=== PATIENT | female | born 1945 | race Caucasian/White ===

== ENCOUNTER 2017-08-26 17:46 | Inpatient (IN) | payer MEDICARE, MEDICAID ==
[2017-08-26 18:51] VITALS: BMI 26.4
[2017-08-27] MEDS: Insulin Lispro (humaLOG) 100 Units/ml Inj SC SCH ×8 (08:32→22:29)
[2017-08-27] MEDS: Insulin Detemir 100 Units/ml Inj SC SCH ×2 (08:44→21:44)
[2017-08-27] MEDS ORDERED: Insulin Detemir 100 Units/ml Inj SC SCH (09:00)
--- NOTE | 2017-08-27 17:57 | PCM.OPOC ---
Physiatry Overall Plan of Care - Overall Plan of Care Estimated Length of Stay in Weeks: 3 Rehab Impairment: Mobility, Gait, Cognition, Speech, Balance, Coordination Etiologic Diagnosis: Cerebrovascular Accident Rehab/Medical Prognosis: Guarded - Anticipated Interventions Physical Therapy:: Yes Occupational Therapy:: Yes Speech Therapy:: Yes Recreational Therapy:: Yes - Therapy Goals Bed Mobility: Minimal Assistance Ambulation: Minimal Assistance Functional Positional Changes:: Minimal Assistance - Discharge Plan Discharge Destination: Subacute
--- NOTE | 2017-08-27 17:59 | CP.PCM.CON ---
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 This is dense and she has very limited gait and ADLs Prior level of function was independent without AD. She is right hand dominant and has good family support. Review of Systems - Constitutional Constitutional: absent: Anorexia, Chills - EENT Eyes: absent: Blind Spots Ears: absent: Ear Discharge, Disequilibrium Nose/Mouth/Throat: absent: Nasal Congestion - Cardiovascular Cardiovascular: absent: Chest Pain - Respiratory Respiratory: absent: Dyspnea - Gastrointestinal Gastrointestinal: absent: Belching, Coffee Ground Emesis, Constipation - Genitourinary Genitourinary: absent: Hematuria - Musculoskeletal Musculoskeletal: absent: Arthralgias - Integumentary Integumentary: absent: Wounds - Neurological Neurological: Focal Weakness (right HP dense), Weakness. absent: Abnormal Movements - Psychiatric Psychiatric: Depression. absent: Anxiety Past Patient History - Past Medical History & Family History Past Medical History?: Yes - Past Social History Smoking Status: Never Smoked Alcohol: None Drugs: Denies Home Situation {Lives}: With Family - CARDIAC Hx Hypertension: Yes - PULMONARY Hx Respiratory Disorders: No - NEUROLOGICAL HX Cerebrovascular Accident: Yes - HEENT Hx HEENT Problems: Yes Other/Comment: uses eyeglasses for reading - RENAL Other/Comment: one kidney removed per daughters - ENDOCRINE/METABOLIC Hx Diabetes Mellitus Type 2: Yes - HEMATOLOGICAL/ONCOLOGICAL Hx Blood Disorders: No Hx AIDS: No Hx Human Immunodeficiency Virus (HIV): No - INTEGUMENTARY Hx Dermatological Problems: No - MUSCULOSKELETAL/RHEUMATOLOGICAL Hx Musculoskeletal Disorders: No Hx Falls: No - GASTROINTESTINAL Other/Comment: on evaluation sheet with hx of gangrenous cholecystitis,S/P lap cholecystectomy but daughters denies - GENITOURINARY/GYNECOLOGICAL Hx Genitourinary Disorders: No - PSYCHIATRIC Hx Psychophysiologic Disorder: No Hx Substance Use: No - SURGICAL HISTORY Hx Surgeries: Yes Other/Comment: one kidney removed per daughters - ANESTHESIA Hx Anesthesia: Yes Hx Anesthesia Reactions: No Hx Malignant Hyperthermia: No Meds Allergies/Adverse Reactions: Allergies Allergy/AdvReac Type Severity Reaction Status Date / Time No Known Allergies Allergy Verified 08/27/17 06:07 - Medications Medications: Current Medications Amlodipine Besylate (Norvasc) 5 mg PO DAILY [facility] Last Admin: 08/27/17 08:28 Dose: 5 mg Aspirin (Aspirin Chewable) 81 mg PO DAILY [facility] Last Admin: 08/27/17 08:29 Dose: 81 mg Atorvastatin Calcium (Lipitor) 80 mg PO HS [facility] Clopidogrel Bisulfate (Plavix) 75 mg PO DAILY [facility] Last Admin: 08/27/17 08:28 Dose: 75 mg Heparin Sodium (Porcine) (Heparin) 5,000 units SC Q8H [facility] PRN Reason: Protocol Last Admin: 08/27/17 17:07 Dose: 5,000 units Insulin Detemir (Levemir) 10 units SC Q12 [facility] Last Admin: 08/27/17 08:44 Dose: 10 units Insulin Human Lispro (Humalog) 5 units SC ACHS [facility] Last Admin: 08/27/17 17:00 Dose: 5 units Insulin Human Lispro (Humalog) 0 units SC ACCU-CHECK [facility] PRN Reason: Protocol Last Admin: 08/27/17 17:01 Dose: 6 units Lidocaine HCl (Lidocaine 2% Viscous) 30 ml PO Q6 PRN PRN Reason: MOUTH PAIN Losartan Potassium (Cozaar) 50 mg PO DAILY [facility] Last Admin: 08/27/17 08:29 Dose: 50 mg Physical Exam - Constitutional Appears: Non-toxic - Head Exam Head Exam: ATRAUMATIC - Eye Exam Eye Exam: EOMI - ENT Exam ENT Exam: Mucous Membranes Moist - Respiratory Exam Respiratory Exam: NORMAL BREATHING PATTERN - Cardiovascular Exam Cardiovascular Exam: REGULAR RHYTHM - GI/Abdominal Exam GI & Abdominal Exam: absent: Distended, Guarding - Extremities Exam Extremities exam: Negative for: calf tenderness - Neurological Exam Neurological exam: Alert - Psychiatric Exam Psychiatric exam: Normal Affect, Normal Mood - Skin Skin Exam: Warm Results - Vital Signs Recent Vital Signs: Last Vital Signs Temp 97.5 F L 08/27/17 08:38 Pulse 91 H 08/27/17 15:51 Resp 18 08/27/17 08:38 BP 150/93 H 08/27/17 08:38 Pulse Ox 96 08/27/17 15:51 - Labs Labs: Laboratory Results - last 24 hr 08/27/17 08/27/17 08/27/17 05:14 11:12 15:55 POC Glucose (mg/dL) 272 H 291 H 307 H Assessment & Plan - Assessment and Plan (Free Text) Assessment: 72 year old right hand dominant female with dense right HP 0/5 Right UE/LE strength normal left UE/LE examination PT/OT to continue to help increase functional independence Team conference for d/c planning Pain: controlled Vascular: no evidence of DVT GI: No evidence of constipation or diarrhea Patient is an excellent acute rehabilitation candidate and will have continued focused speech, PT, OT and recreational therapy to help facilitate a safe and appropriate d/c plan impairment code 01.2 T
[2017-08-27] MEDS ORDERED: Patient's Own Med (Atorvastatin [Lipitor] 80 MG) PO SCH (22:00)
[2017-08-28] MEDS: Insulin Detemir 100 Units/ml Inj SC SCH ×2 (08:00→22:13)
[2017-08-28] MEDS: Insulin Lispro (humaLOG) 100 Units/ml Inj SC SCH ×7 (08:09→22:21)
--- NOTE | 2017-08-28 16:52 | CP.PCM.CON ---
History of Present Illness - History of Present Illness History of Present Illness: I was asked to evaluate patient. Patient is a 72 year old female with PMH HTN, hypercholesterolemia, PFO, CVA who presents for rehab. She was seen in [facility] for CVA. The patient had a previous CVA. [place] was performed revealing PFO. There was atheroma in the aorta. Review of Systems - Constitutional Constitutional: absent: As Per HPI, Anorexia, Chills, Daytime Sleepiness, Excessive Sweating, Fatigue, Fever, Frequent Falls, Headache, Increased Appetite , Lethargy, Malaise, Night Sweats, Snoring, Sleep Apnea, Weight Gain, Weight Loss, Weakness, Other - EENT Eyes: absent: As Per HPI, Blind Spots, Blurred Vision, Change in Vision, Decreased Night Vision, Diplopia, Discharge, Dry Eye, Exophthalmos, Floaters, Irritation, Itchy Eyes, Loss of Peripheral Vision, Pain, Photophobia, Requires Corrective Lenses, Sees Flashes, Spots in Vision, Tunnel Vision, Other Visual Disturbances, Loss of Vision, Other Ears: absent: As Per HPI, Decreased Hearing, Ear Discharge, Ear Pain, Tinnitus, Abnormal Hearing, Disequilibrium, Dizziness, Other Nose/Mouth/Throat: absent: As Per HPI, Epistaxis, Nasal Congestion, Nasal Discharge, Nasal Obstruction, Nasal Trauma, Nose Pain, Post Nasal Drip, Sinus Pain, Sinus Pressure, Bleeding Gums, Change in Voice, Dental Pain, Dry Mouth, Dysphagia, Halitosis, Hoarsness, Lip Swelling, Mouth Lesions, Mouth Pain, Odynophagia, Sore Throat, Throat Swelling, Tongue Swelling, Facial Pain, Neck Pain, Neck Mass, Other - Cardiovascular Cardiovascular: absent: As Per HPI, Acrocyanosis, Chest Pain, Chest Pain at Rest , Chest Pain with Activity, Claudication, Diaphoresis, Dyspnea, Dyspnea on Exertion, Edema, Irregular Heart Rhythm, Pain Radiating to Arm/Neck/Jaw, Leg Edema, Leg Ulcers, Lightheadedness, Orthopnea, Palpitations, Paroxysmal Nocturnal Dyspnea, Pedal Edema, Radiating Pain, Rapid Heart Rate, Slow Heart Rate, Syncope, Other - Respiratory Respiratory: absent: As Per HPI, Cough, Dyspnea, Hemoptysis, Dyspnea on Exertion , Wheezing, Snoring, Stridor, Pain on Inspiration, Chest Congestion, Excessive Mucous Production, Change in Mucous Color, Pain with Coughing, Other - Gastrointestinal Gastrointestinal: absent: As Per HPI, Abdominal Pain, Belching, Bloating, Change in Bowel Habits, Change in Stool Character, Coffee Ground Emesis, Constipation, Cramping, Diarrhea, Dyspepsia, Dysphagia, Early Satiety, Excessive Flatus, Fecal Incontinence, Heartburn, Hematemesis, Hematochezia, Loose Stools, Melena, Nausea, Odynophagia, Temesmus, Vomiting, Other - Genitourinary Genitourinary: absent: As Per HPI, Change in Urinary Stream, Difficulty Urinating, Dysuria, Flank Pain, Hematuria, Pyuria, Nocturia, Urinary Incontinence, Urinary Frequency, Urinary Hesitance, Urinary Urgency, Voiding Freq/Small Amts, Freq UTI, Hx Renal/Bladder Calculi, Hx /Renal Surgery, Bladder Distension, Other - Musculoskeletal Musculoskeletal: absent: As Per HPI, Abnormal Gait, Arthralgias, Atrophy, Back Pain, Deformity, Joint Swelling, Limited Range of Motion, Loss of Height, Muscle Cramps, Muscle Weakness, Myalgias, Neck Pain, Numbness, Radiating Pain into Limb, Stiffness, Tingling, Other - Integumentary Integumentary: absent: As Per HPI, Acne, Alopecia, Bleeding Lesions, Change in Hair, Change in Nails, Change in Pigmentation, Changing Lesions, Dry Skin, Erythema, Furuncle, Hirsutism, Lesions, New Lesions, Non-Healing Lesions, Photosensitivity, Pruritus, Rash, Skin Pain, Skin Ulcer, Sores, Striae, Swelling , Unusual Bruising, Wounds, Jaundice, Other - Neurological Neurological: Focal Weakness - Psychiatric Psychiatric: absent: As Per HPI, Abnormal Sleep Pattern, Anhedonia, Anxiety, Auditory Hallucinations, Behavioral Changes, Change in Appetite, Change in Libido, Confusion, Depression, Difficulty Concentrating, Hallucinations, Homicidal Ideation, Hopelessness, Irritability, Memory Loss, Mood Swings, Panic Attacks, Paranoia, Suicidal Ideation, Visual Hallucinations, Tactile Hallucinations, Other - Endocrine Endocrine: absent: As Per HPI, Change in Body Appearance, Change in Libido, Cold Intolorance, Deepening of Voice, Excessive Sweating, Fatigue, Flushing, Heat Intolorance, Increase in Ring/Shoe/Hat Size, Palpitations, Polydipsia, Polyphagia, Polyuria, Other - Hematologic/Lymphatic Hematologic: absent: As Per HPI, Easy Bleeding, Easy Bruising, Lymphadenopathy, Other Past Patient History - Past Medical History & Family History Past Medical History?: Yes - Past Social History Smoking Status: Never Smoked Alcohol: None Drugs: Denies Home Situation {Lives}: With Family - CARDIAC Hx Hypertension: Yes - PULMONARY Hx Respiratory Disorders: No - NEUROLOGICAL HX Cerebrovascular Accident: Yes - HEENT Hx HEENT Problems: Yes Other/Comment: uses eyeglasses for reading - RENAL Other/Comment: one kidney removed per daughters - ENDOCRINE/METABOLIC Hx Diabetes Mellitus Type 2: Yes - HEMATOLOGICAL/ONCOLOGICAL Hx Blood Disorders: No Hx AIDS: No Hx Human Immunodeficiency Virus (HIV): No - INTEGUMENTARY Hx Dermatological Problems: No - MUSCULOSKELETAL/RHEUMATOLOGICAL Hx Musculoskeletal Disorders: No Hx Falls: No - GASTROINTESTINAL Other/Comment: on evaluation sheet with hx of gangrenous cholecystitis,S/P lap cholecystectomy but daughters denies - GENITOURINARY/GYNECOLOGICAL Hx Genitourinary Disorders: No - PSYCHIATRIC Hx Psychophysiologic Disorder: No Hx Substance Use: No - SURGICAL HISTORY Hx Surgeries: Yes Other/Comment: one kidney removed per daughters - ANESTHESIA Hx Anesthesia: Yes Hx Anesthesia Reactions: No Hx Malignant Hyperthermia: No Meds Allergies/Adverse Reactions: Allergies Allergy/AdvReac Type Severity Reaction Status Date / Time No Known Allergies Allergy Verified 08/27/17 06:07 - Medications Medications: Current Medications Amlodipine Besylate (Norvasc) 5 mg PO DAILY [facility] Last Admin: 08/28/17 08:19 Dose: 5 mg Aspirin (Aspirin Chewable) 81 mg PO DAILY [facility] Last Admin: 08/28/17 08:18 Dose: 81 mg Atorvastatin Calcium (Lipitor) 80 mg PO HS [facility] Last Admin: 08/27/17 21:36 Dose: 80 mg Clopidogrel Bisulfate (Plavix) 75 mg PO DAILY [facility] Last Admin: 08/28/17 08:18 Dose: 75 mg Famotidine (Pepcid) 20 mg PO BID [facility] Last Admin: 08/28/17 08:18 Dose: 20 mg Heparin Sodium (Porcine) (Heparin) 5,000 units SC Q8H [facility] PRN Reason: Protocol Last Admin: 08/28/17 10:04 Dose: 5,000 units Insulin Detemir (Levemir) 10 units SC Q12 [facility] Last Admin: 08/28/17 08:00 Dose: 10 units Insulin Human Lispro (Humalog) 5 units SC AC [facility] Last Admin: 08/28/17 12:49 Dose: 5 units Insulin Human Lispro (Humalog) 0 units SC ACHS [facility] PRN Reason: Protocol Last Admin: 08/28/17 11:30 Dose: 4 units Lidocaine HCl (Lidocaine 2% Viscous) 30 ml PO Q6 PRN PRN Reason: MOUTH PAIN Losartan Potassium (Cozaar) 50 mg PO DAILY [facility] Last Admin: 08/28/17 08:18 Dose: 50 mg Nystatin (Nystop Topical Powder) 1 applic TOP 0600,1400,2200 [facility] Last Admin: 08/28/17 06:22 Dose: 1 applic Physical Exam - Constitutional Appears: Non-toxic - Head Exam Head Exam: NORMAL INSPECTION - Eye Exam Eye Exam: Normal appearance - ENT Exam ENT Exam: Mucous Membranes Moist - Neck Exam Neck exam: Positive for: Full Rom - Respiratory Exam Respiratory Exam: Decreased Breath Sounds - Cardiovascular Exam Cardiovascular Exam: REGULAR RHYTHM - GI/Abdominal Exam GI & Abdominal Exam: Normal Bowel Sounds - Rectal Exam Rectal Exam: Deferred - Extremities Exam Extremities exam: Positive for: pedal edema - Back Exam Back exam: NORMAL INSPECTION - Neurological Exam Neurological exam: Alert - Psychiatric Exam Psychiatric exam: Normal Affect - Skin Skin Exam: Normal Color Results - Vital Signs Recent Vital Signs: Last Vital Signs Temp 96.3 F L 08/28/17 08:17 Pulse 89 08/28/17 08:19 Resp 20 08/28/17 08:17 BP 140/80 08/28/17 08:19 Pulse Ox 98 08/28/17 08:17 - Labs Labs: Laboratory Results - last 24 hr 08/27/17 08/28/17 08/28/17 20:55 01:57 06:25 POC Glucose (mg/dL) 133 H 192 H 169 H 08/28/17 12:05 POC Glucose (mg/dL) 269 H Assessment & Plan (1) CVA (cerebral vascular accident) Assessment and Plan: continue rehab. on statin and antiplatelet therapy. givne PFO and CVA while on antiplatelet therapy, this patient would benefit from anticoagulation. will likely need to wait at least 2 weeks after CVA, but recommend awaitng neuro input Status: Acute (2) PFO (patent foramen ovale) Assessment and Plan: had CVA while on antiplatelt therapy. recommend anticoagulation when cleared from neuro Status: Acute (3) Hypercholesterolemia Assessment and Plan: continue statin therapy Status: Acute
--- NOTE | 2017-08-28 16:55 | CP.PCM.PN ---
Subjective - Date & Time of Evaluation Date of Evaluation: 08/28/17 Time of Evaluation: 16:54 - Subjective Subjective: Patient seen in the PT gym playing bingo no pain in better spirits tolerated therapy today continue with current care Objective - Vital Signs/Intake and Output Vital Signs (last 24 hours): Temp Pulse Resp BP Pulse Ox 96.3 F L 89 20 140/80 98 08/28/17 08:17 08/28/17 08:19 08/28/17 08:17 08/28/17 08:19 08/28/17 08:17 - Medications Medications: Current Medications Amlodipine Besylate (Norvasc) 5 mg PO DAILY [facility] Last Admin: 08/28/17 08:19 Dose: 5 mg Aspirin (Aspirin Chewable) 81 mg PO DAILY [facility] Last Admin: 08/28/17 08:18 Dose: 81 mg Atorvastatin Calcium (Lipitor) 80 mg PO HS [facility] Last Admin: 08/27/17 21:36 Dose: 80 mg Clopidogrel Bisulfate (Plavix) 75 mg PO DAILY [facility] Last Admin: 08/28/17 08:18 Dose: 75 mg Famotidine (Pepcid) 20 mg PO BID [facility] Last Admin: 08/28/17 08:18 Dose: 20 mg Heparin Sodium (Porcine) (Heparin) 5,000 units SC Q8H [facility] PRN Reason: Protocol Last Admin: 08/28/17 10:04 Dose: 5,000 units Insulin Detemir (Levemir) 10 units SC Q12 [facility] Last Admin: 08/28/17 08:00 Dose: 10 units Insulin Human Lispro (Humalog) 5 units SC AC [facility] Last Admin: 08/28/17 12:49 Dose: 5 units Insulin Human Lispro (Humalog) 0 units SC ACHS [facility] PRN Reason: Protocol Last Admin: 08/28/17 11:30 Dose: 4 units Lidocaine HCl (Lidocaine 2% Viscous) 30 ml PO Q6 PRN PRN Reason: MOUTH PAIN Losartan Potassium (Cozaar) 50 mg PO DAILY [facility] Last Admin: 08/28/17 08:18 Dose: 50 mg Nystatin (Nystop Topical Powder) 1 applic TOP 0600,1400,2200 [facility] Last Admin: 08/28/17 06:22 Dose: 1 applic
--- NOTE | 2017-08-28 19:11 | CP.PCM.CON ---
History of Present Illness - History of Present Illness History of Present Illness: CONSULT DICTATED MULTIPLE STROKE FROM PFO AND ATHEROMA FROM [facility] POST STROKE 10 DAYS RIGHT HEMIPLEGIA D/W DR CHEN AGREED ON ELIQUIS /ASA D/C PLAVISX AND REST TO CONTINUE PT DVT PROPHYLAXIS Past Patient History - Past Medical History & Family History Past Medical History?: Yes - Past Social History Smoking Status: Never Smoked Alcohol: None Drugs: Denies Home Situation {Lives}: With Family - CARDIAC Hx Hypertension: Yes - PULMONARY Hx Respiratory Disorders: No - NEUROLOGICAL HX Cerebrovascular Accident: Yes - HEENT Hx HEENT Problems: Yes Other/Comment: uses eyeglasses for reading - RENAL Other/Comment: one kidney removed per daughters - ENDOCRINE/METABOLIC Hx Diabetes Mellitus Type 2: Yes - HEMATOLOGICAL/ONCOLOGICAL Hx Blood Disorders: No Hx AIDS: No Hx Human Immunodeficiency Virus (HIV): No - INTEGUMENTARY Hx Dermatological Problems: No - MUSCULOSKELETAL/RHEUMATOLOGICAL Hx Musculoskeletal Disorders: No Hx Falls: No - GASTROINTESTINAL Other/Comment: on evaluation sheet with hx of gangrenous cholecystitis,S/P lap cholecystectomy but daughters denies - GENITOURINARY/GYNECOLOGICAL Hx Genitourinary Disorders: No - PSYCHIATRIC Hx Psychophysiologic Disorder: No Hx Substance Use: No - SURGICAL HISTORY Hx Surgeries: Yes Other/Comment: one kidney removed per daughters - ANESTHESIA Hx Anesthesia: Yes Hx Anesthesia Reactions: No Hx Malignant Hyperthermia: No Meds Allergies/Adverse Reactions: Allergies Allergy/AdvReac Type Severity Reaction Status Date / Time No Known Allergies Allergy Verified 08/27/17 06:07 - Medications Medications: Current Medications Amlodipine Besylate (Norvasc) 5 mg PO DAILY [facility] Last Admin: 08/28/17 08:19 Dose: 5 mg Aspirin (Aspirin Chewable) 81 mg PO DAILY [facility] Last Admin: 08/28/17 08:18 Dose: 81 mg Atorvastatin Calcium (Lipitor) 80 mg PO HS [facility] Last Admin: 08/27/17 21:36 Dose: 80 mg Clopidogrel Bisulfate (Plavix) 75 mg PO DAILY [facility] Last Admin: 08/28/17 08:18 Dose: 75 mg Famotidine (Pepcid) 20 mg PO BID [facility] Last Admin: 08/28/17 18:19 Dose: 20 mg Heparin Sodium (Porcine) (Heparin) 5,000 units SC Q8H [facility] PRN Reason: Protocol Last Admin: 08/28/17 18:16 Dose: 5,000 units Insulin Detemir (Levemir) 10 units SC Q12 [facility] Last Admin: 08/28/17 08:00 Dose: 10 units Insulin Human Lispro (Humalog) 5 units SC AC [facility] Last Admin: 08/28/17 16:30 Dose: 5 units Insulin Human Lispro (Humalog) 0 units SC ACHS [facility] PRN Reason: Protocol Last Admin: 08/28/17 16:18 Dose: 4 units Lidocaine HCl (Lidocaine 2% Viscous) 30 ml PO Q6 PRN PRN Reason: MOUTH PAIN Losartan Potassium (Cozaar) 50 mg PO DAILY [facility] Last Admin: 08/28/17 08:18 Dose: 50 mg Nystatin (Nystop Topical Powder) 1 applic TOP 0600,1400,2200 [facility] Last Admin: 08/28/17 14:00 Dose: 1 applic Results - Vital Signs Recent Vital Signs: Last Vital Signs Temp 96.3 F L 08/28/17 08:17 Pulse 89 08/28/17 08:19 Resp 20 08/28/17 08:17 BP 140/80 08/28/17 08:19 Pulse Ox 98 08/28/17 08:17 - Labs Labs: Laboratory Results - last 24 hr 08/27/17 08/28/17 08/28/17 20:55 01:57 06:25 POC Glucose (mg/dL) 133 H 192 H 169 H 08/28/17 12:05 POC Glucose (mg/dL) 269 H
[2017-08-28] MEDS ORDERED: Enoxaparin 30 mg Syringe SC SCH (21:00)
--- NOTE | 2017-08-28 21:10 | CON ---
NEUROLOGICAL INITIAL EVALUATION DATE: ATTENDING PHYSICIAN: Fantasma Ivy MD LOCATION: Room number 625. REASON FOR CONSULTATION: Status post stroke for rehabilitation. CHIEF COMPLAINT: The patient was transferred from [facility] to acute rehabilitation for her right hemiplegia. From neurological point of view, I was called into evaluate her for further management. HISTORY OF PRESENT ILLNESS: Ms. Gabi Warren is a 72-year-old right-handed Kazakh speaking female presenting on 08/26/2017 unusual sleeping for longer. Around 08:00 in morning, the patient was found to have facial weakness. Immediately called in 911, the patient was on her way to [facility]. During the transfer the patient was found to have increasing weakness. The patient was admitted and code stroke was called in and TPA was given. The patient found to have a multiple stroke region as per the CAT scan and MRI. The patient was stabilized during the hospitalization. Did have transesophageal echocardiogram which confirmed PFO and atheromatous plaque in the aorta. The patient was placed on dual antiplatelet and DVT prophylaxis. PAST MEDICAL HISTORY: Non-insulin dependent diabetes mellitus, hypertension, dyslipidemia and stroke in the past. PERSONAL HISTORY: Denies smoking or alcohol use. ALLERGIES: NO KNOWN ALLERGIES. REVIEW OF SYSTEMS: A 12-point systems been reviewed. From neuro; right sided weakness. MEDICATIONS: Aspirin, Plavix, Cozaar, Humalog, Levemir, lidocaine, atorvastatin, heparin and famotidine. PHYSICAL EXAMINATION VITAL SIGNS: Blood pressure 159/63, pulse rate 78, regular, respirations 16 and temperature afebrile. NECK: Supple. No carotid bruit. HEART: Heart sounds regular. CHEST: Fair air entry. EXTREMITIES: No edema of legs. Right leg is externally rotated. NEUROLOGICAL: Mental status examination: The patient is examined in the presence of her daughter and her sister. She is awake, alert and oriented to person and place. Speech is dysarthric. She follows one step command. Cranial nerve examination; visual reynolds is not consistent. She made a mistake of counting fingers on either side of the peripheral field and temporal region. Extraocular movements are intact. No facial sensory deficits. Significant facial asymmetry manifesting as a flattening of the right nasolabial fold. Good gag. Motor examination;dense right hemiplegia. Left side, she should move against the gravity. Sensory is normal on the left side. Deep tendon reflexes are absent. Plantars are upgoing on both sides. Sensory examination: Decreased pain on her right side to compare with the left side. Coordination; [id number] test is intact on her left side. WORKUP: Her medical records have been reviewed from the medical center. Her CAT scan and MRI showed that multiple infarct over the right frontal and left frontal region with right occipital strokes and right greater than the left and cerebellar region as well. The patient does have a both anterior as well as posterior cerebral artery distributed region strokes. These are all consistent with her PFO and atheromatous plaque in her aorta. LABORATORY DATA: Blood workup; glucose is 269. CONCLUSION: Ms. Gabi Warren has been presenting with dense right hemiplegia with temporal peripheral field visual defect, left upper motor neuron dysfunction of the facial nerve. Her presentation is all consistent with her embolic infarct from her patent foramen ovale and atheromatous plaque in the aorta. RECOMMENDATIONS: Continue her stroke is more than 10 day, multi-territory embolic process, the patient should be on anticoagulation to prevent further stroke. The patient's condition been discussed with Dr. Phillips, the [employer]. Both we agreed to put her back on Eliquis and aspirin. Plavix and heparin being discontinued. Lovenox can be continued for her DVT prophylaxis. Continue physical therapy. Diabetic control, blood pressure and cholesterol control being maintained as she has been getting it. The patient's condition meanwhile discussed with her family members. Doemnic Neal MD MTDJessie
--- NOTE | 2017-08-29 07:11 | HP ---
The patient is seen today on 08/28/2017. HISTORY OF PRESENT ILLNESS: A 72-year-old female with history of multiple medical problems who presented and admitted to acute rehabilitation at [facility]3] after discharged from [facility]. The patient was admitted on 08/18/2017 about 10 days prior to this admission with right-sided weakness secondary to CVA. The patient was discharged to acute rehabilitation for further management with physical therapy, occupational therapy, and deconditioning. REVIEW OF SYSTEMS: Other review of systems is negative. ALLERGIES: NO KNOWN ALLERGY. MEDICATIONS: As per MAR. PAST MEDICAL HISTORY: Type 2 diabetes mellitus, hypertension, and hypercholesterolemia. SOCIAL HISTORY: No history of smoking, EtOH or substance abuse. FAMILY HISTORY: Noncontributory. PHYSICAL EXAMINATION: GENERAL: The patient is in bed comfortable, and not in any cardiopulmonary distress. VITAL SIGNS: Blood pressure of 140/80, temperature 96.3, respiratory rate 20, and pulse 89. HEENT: Pupils equal and reactive to light. Normal-appearing mucosa of the conjunctivae, oropharynx, and nasal membrane mucosa. NECK: Supple. No JVD. No carotid bruit. No lymph node. No thyromegaly. CHEST AND LUNGS: Bilateral symmetrical expansion. Good air exchange. No rales. No rhonchi. CARDIOVASCULAR: PMI not localized. S1 and S2. No additional sounds. ABDOMEN: Normoactive bowel sounds. No tenderness. No organomegaly. No masses. EXTREMITIES: No cyanosis. No clubbing. No edema. CENTRAL NERVOUS SYSTEM: Alert, awake, and oriented x2 and the patient had right-sided hemiparesis with right upper motor neuron facial paralysis. ASSESSMENT: 1. 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 2. History of patent foramen ovale and atheroma from the aorta. PLAN: Neurology and Cardiology consult and the patient was started on Eliquis as well as aspirin. Discussed the patient's condition with Neurology. Continue current medications otherwise. [facility] MD Biju
[2017-08-29 07:23] LABS: BASO # 0.1 K/uL (0.0-0.2); BASO % 0.9 % (0.0-2.0); EOS # 0.2 K/uL (0.0-0.7); HEMOGLOBIN 12.2 g/dL (12.0-16.0); INR 1.1 (0.9-1.2); LYMPH # 2.7 K/uL (1.0-4.3); LYMPH % 39.8 % (20.0-40.0); MEAN CELL VOLUME 82.7 fl (81.0-99.0); MEAN CORPUSCULAR HEMOGLOBIN 28.5 pg (27.0-31.0); MEAN CORPUSCULAR HGB CONC 34.5 g/dL (33.0-37.0); MEAN PLATELET VOLUME 8.6 fl (7.2-11.7); MONO # 0.7 K/uL (0.0-0.8); MONO % 9.9 % (0.0-10.0); NEUT # 3.2 K/uL (1.8-7.0); NEUT % 46.4 % (50.0-75.0); PROTHROMBIN TIME 11.9 Seconds (9.8-13.1); RBC 4.29 Mil/uL (3.80-5.20); RED CELL DISTRIBUTION WIDTH 13.8 % (11.5-14.5); WHITE BLOOD COUNT 6.9 K/uL (4.8-10.8)
[2017-08-29 07:24] LABS: ALBUMIN 3.5 g/dL (3.5-5.0); ALT/SGPT 29 U/L (9-52); AST/SGOT 21 U/L (14-36); BLOOD UREA NITROGEN 21 mg/dl (7-17); CALCIUM 9.3 mg/dL (8.4-10.2); GFR AFRICAN-AMERICAN > 60; GFR NON-AFRICAN AMERICAN > 60; HDL CHOLESTEROL 38 MG/DL (30-70)
[2017-08-29 07:35] LABS: LDL CHOLESTEROL 81 mg/dL (0-129)
[2017-08-29] MEDS: Insulin Lispro (humaLOG) 100 Units/ml Inj SC SCH ×7 (08:22→21:25)
[2017-08-29] MEDS: Insulin Detemir 100 Units/ml Inj SC SCH ×2 (08:26→21:25)
--- NOTE | 2017-08-29 19:39 | PN ---
DAILY PROGRESS NOTE DATE: 08/29/2017 SUBJECTIVE: The patient is seen today on 08/29/2017. She is not in any cardiopulmonary distress. PHYSICAL EXAMINATION: VITAL SIGNS: Blood pressure 124/83, temperature 97.5, respiratory rate 18, and pulse 78. HEENT: Pupils equal and reactive to light. Normal-appearing mucosa of the conjunctivae, oropharynx, and nasal membrane mucosa. NECK: Supple. No JVD. No carotid bruit. No lymph node. No thyromegaly. CHEST AND LUNGS: Bilateral symmetrical expansion. Good air exchange. No rales. No rhonchi. CARDIOVASCULAR: PMI not localized. S1 and S2. No additional sounds. ABDOMEN: Normoactive bowel sounds. No tenderness. No organomegaly. No masses. EXTREMITIES: No cyanosis. No clubbing. No edema. CENTRAL NERVOUS SYSTEM: Alert, awake, and oriented x1 and the patient has right-sided weakness with right upper motor neuron facial palsy. ASSESSMENT: 1. Recurrent cerebrovascular accident. 2. Patent foramen ovale. 3. Aortic atheroma. PLAN: Follow recommendations of Cardiology and Neurology, physical therapy, and occupational therapy. Keep the patient on the current medications as ordered per tool procurement coordinator and neurologist. Fantasma Ivy MD
[2017-08-30] MEDS: Insulin Lispro (humaLOG) 100 Units/ml Inj SC SCH ×7 (06:51→21:27)
[2017-08-30] MEDS: Insulin Detemir 100 Units/ml Inj SC SCH ×2 (08:20→21:27)
[2017-08-31] MEDS: Insulin Lispro (humaLOG) 100 Units/ml Inj SC SCH ×7 (08:08→21:47)
[2017-08-31] MEDS: Insulin Detemir 100 Units/ml Inj SC SCH ×2 (08:10→21:47)
--- NOTE | 2017-08-31 22:09 | PN ---
DAILY PROGRESS NOTE DATE: 08/31/2017 SUBJECTIVE: The patient is seen today 08/31/2017. She is not in any cardiopulmonary distress. OBJECTIVE: VITAL SIGNS: Blood pressure 157/59, temperature 97.1, respiratory rate 19, and pulse 82. HEENT: Pupils equal and reactive to light. Normal-appearing mucosa of the conjunctivae, oropharynx, and nasal membrane mucosa. NECK: Supple. No JVD. No carotid bruit. No lymph node. No thyromegaly. CHEST AND LUNGS: Bilateral symmetrical expansion. Good air exchange. No rales. No rhonchi. CARDIOVASCULAR: PMI not localized. S1 and S2. No additional sounds. ABDOMEN: Normoactive bowel sounds. No tenderness. No organomegaly. No masses. EXTREMITIES: No cyanosis. No clubbing. No edema. CENTRAL NERVOUS SYSTEM: Alert, awake, and oriented x2 and the patient has right-sided hemiparesis. ASSESSMENT: 1. Recurrent cerebrovascular accident. 2. Patent foramen ovale. 3. Type 2 diabetes mellitus, uncontrolled. PLAN: We will add metformin 500 mg twice a day. Continue physical therapy, occupational therapy, and current medications. Fantasma Ivy MD
[2017-09-01] MEDS: Insulin Lispro (humaLOG) 100 Units/ml Inj SC SCH ×7 (07:12→21:47)
[2017-09-01] MEDS: Insulin Detemir 100 Units/ml Inj SC SCH ×2 (08:22→21:46)
--- NOTE | 2017-09-01 13:13 | PSY.TMCNF ---
Nursing - Vital Signs Vital Signs (Last 8 hours): Vital Signs 09/01/17 09/01/17 09/01/17 08:02 08:19 08:21 Temperature 97.9 F Pulse Rate 74 80 80 Respiratory 20 Rate Blood Pressure 143/73 140/80 140/80 O2 Sat by Pulse 97 Oximetry Pain: 0 - Medications/Other Issues Comment: Pt at moderate nutritional risk. goals: 1. Pt to consume 75-100% of meals. 2. Blood glucoses to between 70-180 mg/dl. Follow-up due on 09/03/2017 - Bladder Management Bladder Pattern: Incontinent - Bowel Management Bowel Pattern: Normal - Goals/Time Frame Comments: Pt was seen awake and alert sitting in her wheelchair in her room. Pt' s daughter Ines present in room. Pt's preferred language is bulgarian, daughter agreeable to translate on behalf of pt. Pt's daughter reported that her mother enjoys playing dominoes, bingo, listening to music, and will occasionally cook at home. Pt presents with expressive and receptive aphasia and would benefit from participating in recreation therapy sessions throughout her stay on unit. Physical Therapy - Bed Mobility Bed Mobility: Verbal Cues, Minimal Assistance, Maximum Assistance - Transfers Wheelchair to Mat: Verbal Cues, Maximum Assistance Sit to Stand: Verbal Cues, Moderate Assistance, Maximum Assistance - Ambulation Orthoses: RUE giv-mansoor sling utilized. RLE DF wrap Comment: -nunu-walker. -RUE giv-mansoor, RLE dorsiflexion wrap. -max A for RLE progression and stability during swing and stance. -has utilization of LUE and trunk control. -VCs for upright gaze. -slides nunu-walker on ground; VCs to improve sequencing with nunu-walker; even after hand over hand guidance of walker patient continues to have poor carry-over with lifting of nunu-walker. - poor midline orientation with lack of leftwards weight shift; patient resistant to shift past mid-line - Stair Negotiation Stairs: Level of Assistance: Not Tested - Standing Balance Static Stand: Maximal Assistance Dynamic Stand: Maximal Assistance - Pain Pain (assessed during therapy session): 0 Comment: pt denies pain - Insight/Carryover Insight/Carryover: Good - Patient/Family Education Comment: -safety, therapy goals, therapy schedule, visitation policies, stroke recovery, POC, mobility, midline orientation, DME - Assessment/Plan Assessment: Ms. Warren requires max A for all mobility. Patient continues to lack any volitional control of the RUE or RLE during mobility. Patient attempts to participate as able in all tasks but requires repeated cueing and education to complete tasks. Patient has impaired midline orientation with resistance to weight shift towards left side during standing dynamic tasks. Patient requires rest breaks during exercise. PT initiated e-stim to RLE without any abnormal response; tolerated well. Pt will benefit from continued comprehensive services addressing impairments s/p CVA. PT recommends skilled therapies 5-6x per week. PT recommends discharge to [facility] home with 24 hour hands on assistance pending progress and family support. - Goals Timeframe: 1 week Goals: -3 training steps with max A with single rail. -mod A with hemiwalker x 100 feet. -sit to/from stand with min A with nunu-walker. -mod A for SPT. - rolling R with CS. -rolling L with mod A. -supine to/from sit with mod A - Provider Therapist: Aminta Doe, PT, DPT License Number: [id number] Occupational Therapy - Arousal/Attention/Orientation Patient Orientation: Person - ADL/IADL Self Feeding: Verbal Cues, Set-up Help, Minimal Assistance Grooming: Maximum Assistance Dressing-Upper Extremity: Maximum Assistance Dressing-Lower Extremity: Dependent - Sitting Balance Static Sitting: Contact Guard Assist Dynamic Sitting: Minimal Assistance, Moderate Assistance Comment: setaed unsupported - Transfers Wheelchair to Bed Transfers: Verbal Cues, Set-up Help, Moderate Assistance, Maximum Assistance Toilet Transfers: Verbal Cues, Set-up Help, Maximum Assistance Comment: -commode transfers - Wheelchair Management Level of Assistance: Verbal Cues, Set-up Help, Moderate Assistance, Maximum Assistance Distance (ft.): 20 - Upper Extremity Status Right Upper Extremity Comment: PROM WFL, no AROM Left Upper Extremity Comment: A/PROM IS WFLS; no limitations noted - Pain Pain (assessed during therapy session): 0 Comment: pt denies pain - Insight/Carryover Insight/Carryover: Good - Patient/Family Education Comment: -safety, therapy goals, therapy schedule, visitation policies, stroke recovery, POC, mobility, midline orientation, DME - Assessment/Plan Assessment: Ms. Warren requires max A for all mobility. Patient continues to lack any volitional control of the RUE or RLE during mobility. Patient attempts to participate as able in all tasks but requires repeated cueing and education to complete tasks. Patient has impaired midline orientation with resistance to weight shift towards left side during standing dynamic tasks. Patient requires rest breaks during exercise. PT initiated e-stim to RLE without any abnormal response; tolerated well. Pt will benefit from continued comprehensive services addressing impairments s/p CVA. PT recommends skilled therapies 5-6x per week. PT recommends discharge to [facility] vs home with 24 hour hands on assistance pending progress and family support. - Goals Timeframe: 1 week Goals: -3 training steps with max A with single rail. -mod A with hemiwalker x 100 feet. -sit to/from stand with min A with nunu-walker. -mod A for SPT. - rolling R with CS. -rolling L with mod A. -supine to/from sit with mod A - Provider Therapist: SP Gonzalez/Juan License Number: [id number] Speech Therapy - Consult Information Patient on Program: Yes Medical Diagnosis: CVA Treatment Diagnosis: -moderate to severe receptive/expressive aphasia. - moderate oropharyngeal dysphagia - Assessment Expressive Language Impairment: Severe Comment: moderate-severe Receptive Language Impairment: Severe Comment: moderate-severe Dysphagia/Swallowing Impairment: Moderate Comment: finely chopped/nectar thick liquids - Plan Assessment: Ms. Warren requires max A for all mobility. Patient continues to lack any volitional control of the RUE or RLE during mobility. Patient attempts to participate as able in all tasks but requires repeated cueing and education to complete tasks. Patient has impaired midline orientation with resistance to weight shift towards left side during standing dynamic tasks. Patient requires rest breaks during exercise. PT initiated e-stim to RLE without any abnormal response; tolerated well. Pt will benefit from continued comprehensive services addressing impairments s/p CVA. PT recommends skilled therapies 5-6x per week. PT recommends discharge to [facility] vs home with 24 hour hands on assistance pending progress and family support. - Provider Therapist: Nathalie Giraldo License Number: [id number] Recreational Therapy - Participation Participation: Participates in Individual and/or Group Sessions - Attendance Attendance: 3-5 times per week - Activities Leisure Activities: Cards and Games - Socialization Level of Socialization: Initiates/interacts freely with care givers and peer - Assessment Assessment/Plan: Ms. Warren requires max A for all mobility. Patient continues to lack any volitional control of the RUE or RLE during mobility. Patient attempts to participate as able in all tasks but requires repeated cueing and education to complete tasks. Patient has impaired midline orientation with resistance to weight shift towards left side during standing dynamic tasks. Patient requires rest breaks during exercise. PT initiated e-stim to RLE without any abnormal response; tolerated well. Pt will benefit from continued comprehensive services addressing impairments s/p CVA. PT recommends skilled therapies 5-6x per week. PT recommends discharge to [facility] vs home with 24 hour hands on assistance pending progress and family support. - Provider Therapist: Elzbieta Birdges, QUALITY SYSTEM MANAGER #[id number] Nutrition - Current Diet Current Diet/ Supplement/ Feedings: Moderate consistent CHO 2 gram Na low fat/ low cholesterol mech altered. (finely chopped) nectar thick glucerna shake 1 per day(220 kcal and 9.9 grams of protein) - Appetite Percent Meal Consumed: 50-74% - Assessment/Goals/Time Frame Assessment/Goals/Time Frame: Pt at moderate nutritional risk. goals: 1. Pt to consume 75-100% of meals. 2. Blood glucoses to between 70-180 mg/dl. Follow- up due on 09/03/2017 - Provider Provider: Dolores Trevino RD Case Management - Discharge Plan Discharge Plan: Home with significant other/family Rehabilitation Plan - Treatment Plan Treatment Plan: Physical Therapy, Occupational Therapy, Speech, Dietary, Patient /Family Education - Discharge Plan Estimated Date of Discharge: 09/19/17 Discharge to: Subacute
--- NOTE | 2017-09-01 14:05 | CP.PCM.PN ---
Subjective - Date & Time of Evaluation Date of Evaluation: 09/01/17 Time of Evaluation: 14:04 - Subjective Subjective: Patient seen in the room, family is present discussed with her at length the difficulties of her rehab to this point denies sob/cp or fever continue current care. will likely need AMITA Objective - Vital Signs/Intake and Output Vital Signs (last 24 hours): Temp Pulse Resp BP Pulse Ox 97.9 F 80 20 140/80 97 09/01/17 08:02 09/01/17 08:21 09/01/17 08:02 09/01/17 08:21 09/01/17 08:02 - Medications Medications: Current Medications Amlodipine Besylate (Norvasc) 5 mg PO DAILY [facility] Last Admin: 09/01/17 08:21 Dose: 5 mg Apixaban (Eliquis) 5 mg PO Q12 [facility] PRN Reason: Protocol Last Admin: 09/01/17 08:22 Dose: 5 mg Aspirin (Aspirin Chewable) 81 mg PO DAILY [facility] Last Admin: 09/01/17 08:24 Dose: 81 mg Atorvastatin Calcium (Lipitor) 80 mg PO HS [facility] Last Admin: 08/31/17 21:48 Dose: 80 mg Famotidine (Pepcid) 20 mg PO BID [facility] Last Admin: 09/01/17 08:22 Dose: 20 mg Insulin Detemir (Levemir) 10 units SC Q12 [facility] Last Admin: 09/01/17 08:22 Dose: 10 units Insulin Human Lispro (Humalog) 5 units SC AC [facility] Last Admin: 09/01/17 12:18 Dose: 5 units Insulin Human Lispro (Humalog) 0 units SC ACHS [facility] PRN Reason: Protocol Last Admin: 09/01/17 12:19 Dose: 6 units Lidocaine HCl (Lidocaine 2% Viscous) 30 ml PO Q6 PRN PRN Reason: MOUTH PAIN Losartan Potassium (Cozaar) 50 mg PO DAILY [facility] Last Admin: 09/01/17 08:19 Dose: 50 mg Metformin HCl (Glucophage) 500 mg PO BIDWM [facility] Last Admin: 09/01/17 08:22 Dose: 500 mg Nystatin (Nystop Topical Powder) 1 applic TOP 0600,1400,2200 [facility] Last Admin: 09/01/17 05:37 Dose: 1 applic - Labs Labs: 08/29/17 05:30 08/29/17 05:30 PT 11.9 Seconds (9.8-13.1) 08/29/17 05:30 INR 1.1 (0.9-1.2) 08/29/17 05:30
[2017-09-02] MEDS: Insulin Lispro (humaLOG) 100 Units/ml Inj SC SCH ×7 (06:50→21:47)
[2017-09-02] MEDS: Insulin Detemir 100 Units/ml Inj SC SCH ×2 (08:16→21:46)
--- NOTE | 2017-09-02 16:41 | CP.PCM.PN ---
Subjective - Date & Time of Evaluation Date of Evaluation: 09/02/17 Time of Evaluation: 16:40 - Subjective Subjective: Patient seen in the room denies sob/cp no headache or nausea continue with current care limited function Objective - Vital Signs/Intake and Output Vital Signs (last 24 hours): Temp Pulse Resp BP Pulse Ox 96.1 F L 77 18 132/72 96 09/02/17 07:55 09/02/17 07:55 09/02/17 07:55 09/02/17 08:18 09/02/17 07:55 - Medications Medications: Current Medications Amlodipine Besylate (Norvasc) 5 mg PO DAILY [facility] Last Admin: 09/02/17 08:18 Dose: 5 mg Apixaban (Eliquis) 5 mg PO Q12 [facility] PRN Reason: Protocol Last Admin: 09/02/17 08:17 Dose: 5 mg Aspirin (Aspirin Chewable) 81 mg PO DAILY [facility] Last Admin: 09/02/17 08:18 Dose: 81 mg Atorvastatin Calcium (Lipitor) 80 mg PO HS [facility] Last Admin: 09/01/17 21:46 Dose: 80 mg Donepezil HCl (Aricept) 10 mg PO HS [facility] Famotidine (Pepcid) 20 mg PO BID [facility] Last Admin: 09/02/17 08:17 Dose: 20 mg Insulin Detemir (Levemir) 10 units SC Q12 [facility] Last Admin: 09/02/17 08:16 Dose: 10 units Insulin Human Lispro (Humalog) 5 units SC AC [facility] Last Admin: 09/02/17 12:17 Dose: 5 units Insulin Human Lispro (Humalog) 0 units SC ACHS [facility] PRN Reason: Protocol Last Admin: 09/02/17 12:18 Dose: 4 units Lidocaine HCl (Lidocaine 2% Viscous) 30 ml PO Q6 PRN PRN Reason: MOUTH PAIN Losartan Potassium (Cozaar) 50 mg PO DAILY [facility] Last Admin: 09/02/17 08:17 Dose: 50 mg Metformin HCl (Glucophage) 500 mg PO BIDWM [facility] Last Admin: 09/02/17 08:17 Dose: 500 mg Nystatin (Nystop Topical Powder) 1 applic TOP 0600,1400,2200 [facility] Last Admin: 09/02/17 05:44 Dose: 1 applic - Labs Labs: 08/29/17 05:30 08/29/17 05:30 PT 11.9 Seconds (9.8-13.1) 08/29/17 05:30 INR 1.1 (0.9-1.2) 08/29/17 05:30
--- NOTE | 2017-09-02 22:44 | PN ---
DAILY PROGRESS NOTE DATE: 09/02/2017 SUBJECTIVE: The patient is seen today 09/02/2017 during physical therapy. She is not in any cardiopulmonary distress. PHYSICAL EXAMINATION: VITAL SIGNS: Blood pressure 131/78, temperature 96.9, respiratory rate 20, and pulse 78. HEENT: Pupils equal and reactive to light. Normal-appearing mucosa of the conjunctivae, oropharynx, and nasal membrane mucosa. NECK: Supple. No JVD. No carotid bruit. No lymph node. No thyromegaly. CHEST AND LUNGS: Bilateral symmetrical expansion. Good air exchange. No rales. No rhonchi. CARDIOVASCULAR: PMI not localized. S1 and S2. No additional sounds. ABDOMEN: Normoactive bowel sounds. No tenderness. No organomegaly. No masses. EXTREMITIES: No cyanosis. No clubbing. No edema. CENTRAL NERVOUS SYSTEM: Alert, awake, and oriented x2 with right-sided hemiparesis and right upper motor neuron facial palsy. ASSESSMENT: 1. Recurrent cerebrovascular accident. 2. Hypertension. 3. Type 2 diabetes mellitus. 4. Patent foramen ovale. PLAN: Continue current medications including anticoagulants. Follow Cardiology and Neurology recommendations. Continue physical therapy and occupational therapy. Fantasma Ivy MD
[2017-09-03] MEDS: Insulin Lispro (humaLOG) 100 Units/ml Inj SC SCH ×7 (07:32→22:12)
[2017-09-03] MEDS: Insulin Detemir 100 Units/ml Inj SC SCH ×2 (08:36→22:00)
--- NOTE | 2017-09-03 21:23 | PN ---
DAILY PROGRESS NOTE DATE: 09/03/2017 SUBJECTIVE: The patient is seen today 09/03/2017. She is not in any cardiopulmonary distress. The patient is cooperative to physical therapy and occupational therapy. PHYSICAL EXAMINATION: VITAL SIGNS: Blood pressure 130/66, temperature 97.7, respiratory rate 20, and pulse 77. HEENT: Pupils equal and reactive to light. Normal-appearing mucosa of the conjunctivae, oropharynx, and nasal membrane mucosa. NECK: Supple. No JVD. No carotid bruit. No lymph node. No thyromegaly. CHEST AND LUNGS: Bilateral symmetrical expansion. Good air exchange. No rales. No rhonchi. CARDIOVASCULAR: PMI not localized. S1 and S2. No additional sounds. ABDOMEN: Normoactive bowel sounds. No tenderness. No organomegaly. No masses. EXTREMITIES: No cyanosis. No clubbing. No edema. CENTRAL NERVOUS SYSTEM: Alert, awake, and oriented x2. The patient has right-sided hemiparesis with right upper motor neuron facial. ASSESSMENT: 1. Recurrent cerebrovascular accident. 2. Patent foramen ovale. 3. Hypertension. 4. Type 2 diabetes mellitus. PLAN: Continue current medications and management and follow recommendations of Cardiology and Neurology. Fantasma Ivy MD
[2017-09-04] MEDS: Insulin Lispro (humaLOG) 100 Units/ml Inj SC SCH ×7 (07:11→21:22)
[2017-09-04] MEDS: Insulin Detemir 100 Units/ml Inj SC SCH ×2 (08:35→21:21)
--- NOTE | 2017-09-04 10:30 | CP.PCM.CON ---
History of Present Illness - History of Present Illness History of Present Illness: Pt is a 72 year old [place]fr[place] female admitted to [facility] following a CVA. Historical report unreliable due to degree of cognitive deficits. Pt reported a previous CVA, HTN, DLD, DM. She was unable to provide medical history. Social History: pt reported living with her . She reported having 6 children. Pt was unable to recall number of grandchildren. Ed.Voc: pt raised in , [place]. She reported having a 5th grade education and not working outside the home. Psych history denied, pt denied a history of alc/sub abuse. MSE: pt alert, not oriented to year, month, day/date, cognitive deficits evident on evaluation and patient frequently responded "I don't know" no si no hi ideation, no psychosis. She did report/acnowledge depression, education regarding therapy provided. Dx: Adjustment Dx plan: Continued Sup therapy Assess for psych consultation Past Patient History - Past Medical History & Family History Past Medical History?: Yes - Past Social History Smoking Status: Never Smoked Alcohol: None Drugs: Denies Home Situation {Lives}: With Family - CARDIAC Hx Hypertension: Yes - PULMONARY Hx Respiratory Disorders: No - NEUROLOGICAL HX Cerebrovascular Accident: Yes - HEENT Hx HEENT Problems: Yes Other/Comment: uses eyeglasses for reading - RENAL Other/Comment: one kidney removed per daughters - ENDOCRINE/METABOLIC Hx Diabetes Mellitus Type 2: Yes - HEMATOLOGICAL/ONCOLOGICAL Hx Blood Disorders: No Hx AIDS: No Hx Human Immunodeficiency Virus (HIV): No - INTEGUMENTARY Hx Dermatological Problems: No - MUSCULOSKELETAL/RHEUMATOLOGICAL Hx Musculoskeletal Disorders: No Hx Falls: No - GASTROINTESTINAL Other/Comment: on evaluation sheet with hx of gangrenous cholecystitis,S/P lap cholecystectomy but daughters denies - GENITOURINARY/GYNECOLOGICAL Hx Genitourinary Disorders: No - PSYCHIATRIC Hx Psychophysiologic Disorder: No Hx Substance Use: No - SURGICAL HISTORY Hx Surgeries: Yes Other/Comment: one kidney removed per daughters - ANESTHESIA Hx Anesthesia: Yes Hx Anesthesia Reactions: No Hx Malignant Hyperthermia: No Meds Allergies/Adverse Reactions: Allergies Allergy/AdvReac Type Severity Reaction Status Date / Time No Known Allergies Allergy Verified 08/27/17 06:07 - Medications Medications: Current Medications Amlodipine Besylate (Norvasc) 5 mg PO DAILY [facility] Last Admin: 03/09/18 08:36 Dose: 5 mg Apixaban (Eliquis) 5 mg PO Q12 [facility] PRN Reason: Protocol Last Admin: 09/04/17 08:35 Dose: 5 mg Aspirin (Aspirin Chewable) 81 mg PO DAILY [facility] Last Admin: 09/04/17 08:35 Dose: 81 mg Atorvastatin Calcium (Lipitor) 80 mg PO HS [facility] Last Admin: 09/03/17 21:58 Dose: 80 mg Donepezil HCl (Aricept) 10 mg PO HS [facility] Last Admin: 09/03/17 21:59 Dose: 10 mg Famotidine (Pepcid) 20 mg PO BID [facility] Last Admin: 09/04/17 08:35 Dose: 20 mg Insulin Detemir (Levemir) 10 units SC Q12 [facility] Last Admin: 09/04/17 08:35 Dose: 10 units Insulin Human Lispro (Humalog) 5 units SC AC [facility] Last Admin: 09/04/17 07:11 Dose: 5 units Insulin Human Lispro (Humalog) 0 units SC ACHS [facility] PRN Reason: Protocol Last Admin: 09/04/17 07:12 Dose: Not Given Lidocaine HCl (Lidocaine 2% Viscous) 30 ml PO Q6 PRN PRN Reason: MOUTH PAIN Losartan Potassium (Cozaar) 50 mg PO DAILY [facility] Last Admin: 09/04/17 08:35 Dose: 50 mg Metformin HCl (Glucophage) 500 mg PO BIDWM [facility] Last Admin: 09/04/17 08:35 Dose: 500 mg Nystatin (Nystop Topical Powder) 1 applic TOP 0600,1400,2200 [facility] Last Admin: 09/04/17 06:39 Dose: 1 applic Results - Vital Signs Recent Vital Signs: Last Vital Signs Temp 98.1 F 09/04/17 08:33 Pulse 64 09/04/17 08:36 Resp 19 09/04/17 08:33 BP 134/77 09/04/17 08:36 Pulse Ox 96 09/04/17 08:33 - Labs Result Diagrams: 08/29/17 05:30 08/29/17 05:30 Labs: Laboratory Results - last 24 hr 09/03/17 09/03/17 09/03/17 10:59 16:05 21:02 POC Glucose (mg/dL) 352 H 115 H 108 09/04/17 06:38 POC Glucose (mg/dL) 150 H
--- NOTE | 2017-09-04 17:42 | CP.PCM.PN ---
Subjective - Date & Time of Evaluation Date of Evaluation: 09/04/17 Time of Evaluation: 17:41 - Subjective Subjective: Patient with significant improvement in therapies today ambulating 50' with mod A this is great to see hopefully will continue to progress no pain Objective - Vital Signs/Intake and Output Vital Signs (last 24 hours): Temp Pulse Resp BP Pulse Ox 98.1 F 64 19 134/77 96 09/04/17 08:33 09/04/17 08:36 09/04/17 08:33 09/04/17 08:36 09/04/17 08:33 - Medications Medications: Current Medications Amlodipine Besylate (Norvasc) 5 mg PO DAILY [facility] Last Admin: 09/04/17 08:36 Dose: 5 mg Apixaban (Eliquis) 5 mg PO Q12 [facility] PRN Reason: Protocol Last Admin: 09/04/17 08:35 Dose: 5 mg Aspirin (Aspirin Chewable) 81 mg PO DAILY [facility] Last Admin: 09/04/17 08:35 Dose: 81 mg Atorvastatin Calcium (Lipitor) 80 mg PO HS [facility] Last Admin: 09/03/17 21:58 Dose: 80 mg Donepezil HCl (Aricept) 10 mg PO HS [facility] Last Admin: 09/03/17 21:59 Dose: 10 mg Famotidine (Pepcid) 20 mg PO BID [facility] Last Admin: 09/04/17 17:13 Dose: 20 mg Insulin Detemir (Levemir) 10 units SC Q12 [facility] Last Admin: 09/04/17 08:35 Dose: 10 units Insulin Human Lispro (Humalog) 5 units SC AC [facility] Last Admin: 09/04/17 17:13 Dose: 5 units Insulin Human Lispro (Humalog) 0 units SC ACHS [facility] PRN Reason: Protocol Last Admin: 09/04/17 17:13 Dose: 2 units Lidocaine HCl (Lidocaine 2% Viscous) 30 ml PO Q6 PRN PRN Reason: MOUTH PAIN Losartan Potassium (Cozaar) 50 mg PO DAILY [facility] Last Admin: 09/04/17 08:35 Dose: 50 mg Metformin HCl (Glucophage) 500 mg PO BIDWM [facility] Last Admin: 09/04/17 17:13 Dose: 500 mg Nystatin (Nystop Topical Powder) 1 applic TOP 0600,1400,2200 [facility] Last Admin: 09/04/17 13:24 Dose: 1 applic - Labs Labs: 08/29/17 05:30 08/29/17 05:30 PT 11.9 Seconds (9.8-13.1) 08/29/17 05:30 INR 1.1 (0.9-1.2) 08/29/17 05:30
[2017-09-05] MEDS: Insulin Lispro (humaLOG) 100 Units/ml Inj SC SCH ×7 (06:31→21:44)
[2017-09-05] MEDS: Insulin Detemir 100 Units/ml Inj SC SCH ×2 (08:45→21:44)
[2017-09-05 18:58] LABS: HEMOGLOBIN 13.8 g/dL (12.0-16.0); MEAN CELL VOLUME 84.4 fl (81.0-99.0); MEAN CORPUSCULAR HEMOGLOBIN 28.2 pg (27.0-31.0); MEAN CORPUSCULAR HGB CONC 33.4 g/dL (33.0-37.0); RBC 4.9 Mil/uL (3.80-5.20); RED CELL DISTRIBUTION WIDTH 14.1 % (11.5-14.5); WHITE BLOOD COUNT 9.2 K/uL (4.8-10.8)
[2017-09-05 19:19] LABS: BLOOD UREA NITROGEN 24 mg/dl (7-17); CALCIUM 9.9 mg/dL (8.4-10.2); GFR AFRICAN-AMERICAN > 60; GFR NON-AFRICAN AMERICAN > 60
--- NOTE | 2017-09-05 23:02 | PN ---
DAILY PROGRESS NOTE DATE: 09/05/2017 SUBJECTIVE: The patient is seen today on 09/05/2017. She is cooperative to physical therapy and occupational therapy. No cardiopulmonary distress. PHYSICAL EXAMINATION: VITAL SIGNS: Blood pressure is 135/66, temperature 97.2, respiratory rate 19, and pulse 86. HEENT: Pupils equal and reactive to light. Normal-appearing mucosa of the conjunctivae, oropharynx, and nasal membrane mucosa. NECK: Supple. No JVD. No carotid bruit. No lymph node. No thyromegaly. CHEST AND LUNGS: Bilateral symmetrical expansion. Good air exchange. No rales. No rhonchi. CARDIOVASCULAR: PMI not localized. S1 and S2. No additional sounds. ABDOMEN: Normoactive bowel sounds. No tenderness. No organomegaly. No masses. EXTREMITIES: No cyanosis. No clubbing. No edema. CENTRAL NERVOUS SYSTEM: Alert, awake, and oriented x2. No neurological deficit could be appreciated. ASSESSMENT: 1. Recurrent cerebrovascular accident. 2. Patent foramen ovale. 3. Hypertension. 4. Aortic atheroma. 5. Type 2 diabetes mellitus. PLAN: Continue current medications. We will repeat the serum creatinine today and continue the Eliquis as per Cardiology and Neurology recommendations. Fantasma Ivy MD
[2017-09-06] MEDS: Insulin Lispro (humaLOG) 100 Units/ml Inj SC SCH ×7 (06:36→21:39)
[2017-09-06] MEDS: Insulin Detemir 100 Units/ml Inj SC SCH ×2 (08:24→21:38)
[2017-09-07] MEDS: Insulin Lispro (humaLOG) 100 Units/ml Inj SC SCH ×7 (06:43→21:32)
[2017-09-07] MEDS: Insulin Detemir 100 Units/ml Inj SC SCH ×2 (08:19→21:31)
--- NOTE | 2017-09-07 18:24 | CP.PCM.PN ---
Subjective - Date & Time of Evaluation Date of Evaluation: 09/07/17 Time of Evaluation: 18:23 - Subjective Subjective: Patient seen in the room with daughter and Dr Ivy present she has improving right hip extension on manual motor testing there is a question of her crying and depression which Dr Ivy will address. team conference is set for tomorrow and family will be there at bedside continue current care she is ambulating 50' with QC and mod A Objective - Vital Signs/Intake and Output Vital Signs (last 24 hours): Temp Pulse Resp BP Pulse Ox 97.2 F L 73 20 130/95 H 97 09/07/17 08:07 09/07/17 08:07 09/07/17 08:07 09/07/17 08:21 09/07/17 08:07 - Medications Medications: Current Medications Amlodipine Besylate (Norvasc) 5 mg PO DAILY [facility] Last Admin: 09/07/17 08:20 Dose: 5 mg Apixaban (Eliquis) 5 mg PO Q12 [facility] PRN Reason: Protocol Last Admin: 09/07/17 08:20 Dose: 5 mg Aspirin (Aspirin Chewable) 81 mg PO DAILY [facility] Last Admin: 09/07/17 08:21 Dose: 81 mg Atorvastatin Calcium (Lipitor) 80 mg PO HS [facility] Last Admin: 09/06/17 21:37 Dose: 80 mg Donepezil HCl (Aricept) 10 mg PO HS [facility] Last Admin: 09/06/17 21:37 Dose: 10 mg Escitalopram Oxalate (Lexapro) 5 mg PO HS [facility] Famotidine (Pepcid) 20 mg PO BID [facility] Last Admin: 09/07/17 16:57 Dose: 20 mg Insulin Detemir (Levemir) 10 units SC Q12 [facility] Last Admin: 09/07/17 08:19 Dose: 10 units Insulin Human Lispro (Humalog) 5 units SC AC [facility] Last Admin: 09/07/17 16:55 Dose: 5 units Insulin Human Lispro (Humalog) 0 units SC ACHS [facility] PRN Reason: Protocol Last Admin: 09/07/17 16:55 Dose: 2 units Lidocaine HCl (Lidocaine 2% Viscous) 30 ml PO Q6 PRN PRN Reason: MOUTH PAIN Losartan Potassium (Cozaar) 50 mg PO DAILY [facility] Last Admin: 09/07/17 08:21 Dose: 50 mg Metformin HCl (Glucophage) 500 mg PO BIDWM [facility] Last Admin: 09/07/17 16:57 Dose: 500 mg Nystatin (Nystop Topical Powder) 1 applic TOP 0600,1400,2200 [facility] Last Admin: 09/07/17 13:13 Dose: 1 applic - Labs Labs: 09/05/17 18:30 09/05/17 18:30 PT 11.9 Seconds (9.8-13.1) 08/29/17 05:30 INR 1.1 (0.9-1.2) 08/29/17 05:30
--- NOTE | 2017-09-07 21:55 | PN ---
DAILY PROGRESS NOTE DATE: 09/07/2017 SUBJECTIVE: The patient is seen today 09/07/2017. The patient is having crying spells and as per daughter that she feels that her mother may be depressed. PHYSICAL EXAMINATION: VITAL SIGNS: Blood pressure is 130/95, temperature 97.2, respiratory rate 20, and pulse 73. HEENT: Pupils equal and reactive to light. Normal-appearing mucosa of the conjunctivae, oropharynx, and nasal membrane mucosa. NECK: Supple. No JVD. No carotid bruit. No lymph node. No thyromegaly. CHEST AND LUNGS: Bilateral symmetrical expansion. Good air exchange. No rales. No rhonchi. CARDIOVASCULAR: PMI not localized. S1 and S2. No additional sounds. ABDOMEN: Normoactive bowel sounds. No tenderness. No organomegaly. No masses. EXTREMITIES: No cyanosis. No clubbing. No edema. CENTRAL NERVOUS SYSTEM: Alert, awake, and oriented x2. No neurological deficit could be appreciated except for the right-sided weakness. ASSESSMENT: Recurrent cerebrovascular accident, type 2 diabetes mellitus, hypertension, and possible depression. PLAN: We will start the patient on Lexapro 5 mg and continue current medications and physical therapy and occupational therapy. Fantasma Ivy MD
[2017-09-08] MEDS: Insulin Lispro (humaLOG) 100 Units/ml Inj SC SCH ×7 (06:36→21:00)
[2017-09-08] MEDS: Insulin Detemir 100 Units/ml Inj SC SCH ×2 (08:12→21:21)
--- NOTE | 2017-09-08 13:07 | CP.PCM.CON ---
History of Present Illness - History of Present Illness History of Present Illness: consult requested for post stroke depression Pt is a 72 year old Gianfranco female admitted to [facility] following a CVA. This is the second CVA in a period of one year, pt has been noted by staff and family to be tearful and depressed, on evaluation pt reported she has been increasingly depressed as she has been used to be independent and attending to her own needs prior to CVA, reported episodes of tearfullness and sadness decreased sleep with early insomnia, no changes in appetite pt denied any current suicidal or homicidal ideations, denied perceptual disturbanes pt reeported having six children and having very supportive family denied any previous psychiatric treatment Past Patient History - Past Medical History & Family History Past Medical History?: Yes - Past Social History Smoking Status: Never Smoked Alcohol: None Drugs: Denies Home Situation {Lives}: With Family - CARDIAC Hx Hypertension: Yes - PULMONARY Hx Respiratory Disorders: No - NEUROLOGICAL HX Cerebrovascular Accident: Yes - HEENT Hx HEENT Problems: Yes Other/Comment: uses eyeglasses for reading - RENAL Other/Comment: one kidney removed per daughters - ENDOCRINE/METABOLIC Hx Diabetes Mellitus Type 2: Yes - HEMATOLOGICAL/ONCOLOGICAL Hx Blood Disorders: No Hx AIDS: No Hx Human Immunodeficiency Virus (HIV): No - INTEGUMENTARY Hx Dermatological Problems: No - MUSCULOSKELETAL/RHEUMATOLOGICAL Hx Musculoskeletal Disorders: No Hx Falls: No - GASTROINTESTINAL Other/Comment: on evaluation sheet with hx of gangrenous cholecystitis,S/P lap cholecystectomy but daughters denies - GENITOURINARY/GYNECOLOGICAL Hx Genitourinary Disorders: No - PSYCHIATRIC Hx Psychophysiologic Disorder: No Hx Substance Use: No - SURGICAL HISTORY Hx Surgeries: Yes Other/Comment: one kidney removed per daughters - ANESTHESIA Hx Anesthesia: Yes Hx Anesthesia Reactions: No Hx Malignant Hyperthermia: No Meds Allergies/Adverse Reactions: Allergies Allergy/AdvReac Type Severity Reaction Status Date / Time No Known Allergies Allergy Verified 08/27/17 06:07 - Medications Medications: Current Medications Amlodipine Besylate (Norvasc) 5 mg PO DAILY [facility] Last Admin: 09/08/17 08:12 Dose: 5 mg Apixaban (Eliquis) 5 mg PO Q12 [facility] PRN Reason: Protocol Last Admin: 09/08/17 08:11 Dose: 5 mg Aspirin (Aspirin Chewable) 81 mg PO DAILY [facility] Last Admin: 09/08/17 08:11 Dose: 81 mg Atorvastatin Calcium (Lipitor) 80 mg PO HS [facility] Last Admin: 09/07/17 21:30 Dose: 80 mg Donepezil HCl (Aricept) 10 mg PO HS [facility] Last Admin: 09/07/17 21:30 Dose: 10 mg Escitalopram Oxalate (Lexapro) 5 mg PO HS [facility] Last Admin: 09/07/17 21:30 Dose: 5 mg Famotidine (Pepcid) 20 mg PO BID [facility] Last Admin: 09/08/17 08:11 Dose: 20 mg Insulin Detemir (Levemir) 10 units SC Q12 [facility] Last Admin: 09/08/17 08:12 Dose: 10 units Insulin Human Lispro (Humalog) 5 units SC AC [facility] Last Admin: 09/08/17 12:20 Dose: 5 units Insulin Human Lispro (Humalog) 0 units SC ACHS [facility] PRN Reason: Protocol Last Admin: 09/08/17 12:21 Dose: Not Given Lidocaine HCl (Lidocaine 2% Viscous) 30 ml PO Q6 PRN PRN Reason: MOUTH PAIN Losartan Potassium (Cozaar) 50 mg PO DAILY [facility] Last Admin: 09/08/17 08:12 Dose: 50 mg Metformin HCl (Glucophage) 500 mg PO BIDWM [facility] Last Admin: 09/08/17 08:11 Dose: 500 mg Nystatin (Nystop Topical Powder) 1 applic TOP 0600,1400,2200 [facility] Last Admin: 09/08/17 06:26 Dose: 1 applic Physical Exam - Psychiatric Exam Additional comments: pt seen on a wheel chair, cooperative good eye contact, speech slurred and underproductive because of the stroke, sad mood and affect when talking about her medical problems, pt denied any current suicidal or homicidal ideations denied perceptual disturbances, alert awake oriented to person and partially to place Results - Vital Signs Recent Vital Signs: Last Vital Signs Temp 97.9 F 09/08/17 08:48 Pulse 87 09/08/17 08:48 Resp 19 09/08/17 08:48 BP 155/74 H 09/08/17 08:48 Pulse Ox 97 09/08/17 08:33 - Labs Result Diagrams: 09/05/17 18:30 09/05/17 18:30 Labs: Laboratory Results - last 24 hr 09/07/17 09/07/17 09/07/17 10:55 16:17 20:57 POC Glucose (mg/dL) 216 H 191 H 174 H 09/08/17 09/08/17 06:25 12:05 POC Glucose (mg/dL) 145 H 137 H Assessment & Plan - Assessment and Plan (Free Text) Assessment: post stroke depression Plan: continue with lexapro 5mg daily recommend trazodone 25mg qhs prn for insomnia also on discharge social services aide may refer pt to outpatient psychotherapy services
--- NOTE | 2017-09-08 13:10 | PSY.TMCNF ---
Nursing - Vital Signs Vital Signs (Last 8 hours): Vital Signs 09/08/17 09/08/17 09/08/17 08:12 08:33 08:48 Temperature 97.9 F 97.9 F Pulse Rate 87 87 87 Respiratory 19 19 Rate Blood Pressure 156/74 H 155/74 H 155/74 H O2 Sat by Pulse 97 Oximetry Pain: 0 - Precautions: Precautions: Fall Prevention, Aspiration, Pressure Ulcer, Seizure - Medications/Other Issues Comment: Pt is at moderate nutritional risk. Goals: 1. Pt to consume 75-100% of meals- met, continue. 2. Blood glucoses to between 70-180 mg/dl- not met, continue. Follow-up assessment due by 09/09/2017. - Consults Comment: Dr. Carcamo, Dr. Aguayo, Dr. Miranda - Toileting Toileting: Dependent - Bladder Management Bladder Pattern: Normal, Incontinent Voiding Method: Toilet, Bedpan, Diaper Bladder Management: Dependent Frequency of Accidents: >5 - Bowel Management Bowel Pattern: Incontinent Bowel Management: Dependent Frequency of Accidents: >5 - Transfers Transfers: Maximal Assistance - ADL's ADL's: Maximal Assistance - Pain Management Comments: denies any pain - Patient/Family Teaching Comments: N/A - Goals/Time Frame Comments: PER MULTIDISCIPLINARY CARE PLAN GOALS - Provider Provider: SANDEEP BLEVINSN RN CRRN Physical Therapy - Bed Mobility Bed Mobility: Verbal Cues, Contact Guard, Maximum Assistance - Transfers Wheelchair to Mat: Verbal Cues, Maximum Assistance Sit to Stand: Verbal Cues, Moderate Assistance, Maximum Assistance - Ambulation Level of Assistance: Moderate Assistance, Maximum Assistance Distance (ft.): 50 Assistive Devices: Wide base quad cane Orthoses: MFC sling RUE. dorsiflexion wrap RLE Comment: -RUE MFC brace, RLE dorsiflexion wrap. -max A to mod A for RLE progression and stability during swing and stance-->PT observes some increased ability to stabilize RLE during stance with reduced recurvatum noted and decreased posterior support required by PT to prevent buckling. -has utilization of LUE and trunk control with mod A for stabilization. -VCs for upright gaze. -assistance for weight shifting as well - Stair Negotiation Stairs: Level of Assistance: Not Tested Comment: TBA - Standing Balance Static Stand: Moderate Assistance Dynamic Stand: Maximal Assistance - Pain Pain (assessed during therapy session): 0 Comment: pt denies pain - Insight/Carryover Insight/Carryover: Fair - Patient/Family Education Comment: -safety, therapy goals, therapy schedule, visitation policies, stroke recovery, POC, mobility, midline orientation, DME - Assessment/Plan Assessment: Pt continues to be agreeable to participate in recreation therapy sessions. Pt requires mod A throughout all leisure tasks for number recognition , color recognition, and carryover of task rules. Pt presents with R side visual inattention and requires verbal cues to attend to the R side. Pt will continue to beneift from participating in recreation therapy sessions throughout stay on unit. - Goals Timeframe: 7 days Goals: 3 training steps with max A with single rail. mod A with WBQC x 100 feet with bracing as needed. sit to/form stand with min A with WBQC. mod A for SPT. rolling R with CS. rolling L with mod A. supine to/from sit with mod A - Provider Therapist: Aminta Doe PT, DPT License Number: [id number] Occupational Therapy - Arousal/Attention/Orientation Patient Orientation: Person, Place - ADL/IADL Self Feeding: Verbal Cues, Set-up Help, Minimal Assistance Grooming: Maximum Assistance Bathing-Upper Extremity: Verbal Cues, Set-up Help, Maximum Assistance Bathing-Lower Extremity: Maximum Assistance, Dependent Dressing-Upper Extremity: Maximum Assistance Dressing-Lower Extremity: Dependent - Sitting Balance Static Sitting: Contact Guard Assist Dynamic Sitting: Reaches across midline, Reaches out of base of support, Reaches within base of support, Minimal Assistance, Moderate Assistance Comment: seated unsupported - Transfers Wheelchair to Bed Transfers: Verbal Cues, Set-up Help, Moderate Assistance, Maximum Assistance Toilet Transfers: Verbal Cues, Set-up Help, Moderate Assistance, Maximum Assistance Comment: -commode transfers - Wheelchair Management Level of Assistance: Verbal Cues, Set-up Help, Moderate Assistance, Maximum Assistance Distance (ft.): 20 - Upper Extremity Status Right Upper Extremity Comment: PROM WFL, no AROM noted at this time Left Upper Extremity Comment: A/PROM IS WFLS; no limitations noted - Pain Pain (assessed during therapy session): 0 Comment: pt denies pain - Insight/Carryover Insight/Carryover: Fair - Patient/Family Education Comment: -safety, therapy goals, therapy schedule, visitation policies, stroke recovery, POC, mobility, midline orientation, DME - Assessment/Plan Assessment: Pt continues to be agreeable to participate in recreation therapy sessions. Pt requires mod A throughout all leisure tasks for number recognition , color recognition, and carryover of task rules. Pt presents with R side visual inattention and requires verbal cues to attend to the R side. Pt will continue to beneift from participating in recreation therapy sessions throughout stay on unit. - Goals Timeframe: 7 days Goals: 3 training steps with max A with single rail. mod A with WBQC x 100 feet with bracing as needed. sit to/form stand with min A with WBQC. mod A for SPT. rolling R with CS. rolling L with mod A. supine to/from sit with mod A - Provider Therapist: SP Gonzalez/Juan License Number: [id number] Speech Therapy - Consult Information Patient on Program: Yes Medical Diagnosis: CVA Treatment Diagnosis: -moderate to severe receptive/expressive aphasia. - moderate oropharyngeal dysphagia - Assessment Expressive Language Impairment: Severe Comment: moderate-severe Receptive Language Impairment: Severe Comment: moderate to severe Dysphagia/Swallowing Impairment: Moderate - Plan Assessment: Pt continues to be agreeable to participate in recreation therapy sessions. Pt requires mod A throughout all leisure tasks for number recognition , color recognition, and carryover of task rules. Pt presents with R side visual inattention and requires verbal cues to attend to the R side. Pt will continue to beneift from participating in recreation therapy sessions throughout stay on unit. - Provider Therapist: Nathalie Giraldo License Number: [id number] Recreational Therapy - Participation Participation: Participates in Individual and/or Group Sessions - Attendance Attendance: 3-5 times per week - Activities Leisure Activities: Cards and Games - Socialization Level of Socialization: Responds freely, but does not initiate, Requires 1:1 guidance to respond, Minimal initiation of interaction to request basic needs - Assessment Assessment/Plan: Pt continues to be agreeable to participate in recreation therapy sessions. Pt requires mod A throughout all leisure tasks for number recognition, color recognition, and carryover of task rules. Pt presents with R side visual inattention and requires verbal cues to attend to the R side. Pt will continue to beneift from participating in recreation therapy sessions throughout stay on unit. Problems Currently Limiting Participation: aphasia, R side UE and LE weakness, R side visual inattention Goals and Time Frame: Pt will be encouraged to participate in 1:1 and group recreation therapy session 3-5x week to improve attention to task, memory recall , direction following, command following, and improving speech intelligbility. - Provider Therapist: Elzbieta Bridges, [employer]ICULT[employer] EQUIPMENT TEST ENGINEER #[id number] Nutrition - Current Diet Current Diet/ Supplement/ Feedings: Advanced bite-size, moderate consistent CHO , low fat/cholesterol, 2 gm Na diet with nectar thick liquids - Appetite Percent Meal Consumed: 50-74% - Comments Comments: N/A - Assessment/Goals/Time Frame Assessment/Goals/Time Frame: Pt is at moderate nutritional risk. Goals: 1. Pt to consume 75-100% of meals- met, continue. 2. Blood glucoses to between 70 -180 mg/dl- not met, continue. Follow-up assessment due by 09/09/2017. - Provider Provider: Scarlett Otero MS, RD Case Management - Psychosocial Assessment Support Systems: Resides with spouse; Has 6 children who are supportive and involved. Sara Warren/daughter/[phone]. Daughter Joya is her paid SPIRAL RUNNER through [employer] Psychological Interventions/Needs: Pt noted to be tearful and daughters report mood change in patient; Psychology consult placed per nursing Patient/Family Meeting: CM met with pt and daughters Joya/Ines/Sara with pt 's consent as well as rehab team Intervention/Goal/Outcome:: 1. Tenatative D/C date 09/19/17 ; Recommendations for [facility] however daughter Joya reports that pt is eager to be discharged home and they will be available to assist 24hrs/day; Will refer for skilled homecare. Also agreeable to caregiver training 2. Emotional support 3. DME to be determined 4. Emotional support - Discharge Plan Discharge Plan: Home with services Home Services: [facility] - Provider Provider: LUKAS Rice, [facility] License Number: [id number] Rehabilitation Plan - Treatment Plan Treatment Plan: Physical Therapy, Occupational Therapy, Speech, Dietary, Patient /Family Education - Discharge Plan Estimated Date of Discharge: 09/19/17 Discharge to: Home
--- NOTE | 2017-09-08 13:31 | CP.PCM.PN ---
Subjective - Date & Time of Evaluation Date of Evaluation: 09/08/17 Time of Evaluation: 13:30 - Subjective Subjective: Patient seen in the room, daughter is present again denies sob/cp still with max A but able to ambulate 50' dense right HP with some right LE extension return Objective - Vital Signs/Intake and Output Vital Signs (last 24 hours): Temp Pulse Resp BP Pulse Ox 97.9 F 87 19 155/74 H 97 09/08/17 08:48 09/08/17 08:48 09/08/17 08:48 09/08/17 08:48 09/08/17 08:33 - Medications Medications: Current Medications Amlodipine Besylate (Norvasc) 5 mg PO DAILY [facility] Last Admin: 09/08/17 08:12 Dose: 5 mg Apixaban (Eliquis) 5 mg PO Q12 [facility] PRN Reason: Protocol Last Admin: 09/08/17 08:11 Dose: 5 mg Aspirin (Aspirin Chewable) 81 mg PO DAILY [facility] Last Admin: 09/08/17 08:11 Dose: 81 mg Atorvastatin Calcium (Lipitor) 80 mg PO HS [facility] Last Admin: 09/07/17 21:30 Dose: 80 mg Donepezil HCl (Aricept) 10 mg PO HS [facility] Last Admin: 09/07/17 21:30 Dose: 10 mg Escitalopram Oxalate (Lexapro) 5 mg PO HS [facility] Last Admin: 09/07/17 21:30 Dose: 5 mg Famotidine (Pepcid) 20 mg PO BID [facility] Last Admin: 09/08/17 08:11 Dose: 20 mg Insulin Detemir (Levemir) 10 units SC Q12 [facility] Last Admin: 09/08/17 08:12 Dose: 10 units Insulin Human Lispro (Humalog) 5 units SC AC [facility] Last Admin: 09/08/17 12:20 Dose: 5 units Insulin Human Lispro (Humalog) 0 units SC ACHS [facility] PRN Reason: Protocol Last Admin: 09/08/17 12:21 Dose: Not Given Lidocaine HCl (Lidocaine 2% Viscous) 30 ml PO Q6 PRN PRN Reason: MOUTH PAIN Losartan Potassium (Cozaar) 50 mg PO DAILY [facility] Last Admin: 09/08/17 08:12 Dose: 50 mg Metformin HCl (Glucophage) 500 mg PO BIDWM [facility] Last Admin: 09/08/17 08:11 Dose: 500 mg Nystatin (Nystop Topical Powder) 1 applic TOP 0600,1400,2200 [facility] Last Admin: 09/08/17 06:26 Dose: 1 applic - Labs Labs: 09/05/17 18:30 09/05/17 18:30 PT 11.9 Seconds (9.8-13.1) 08/29/17 05:30 INR 1.1 (0.9-1.2) 08/29/17 05:30
[2017-09-09] MEDS: Insulin Lispro (humaLOG) 100 Units/ml Inj SC SCH ×7 (06:30→21:13)
[2017-09-09] MEDS: Insulin Detemir 100 Units/ml Inj SC SCH ×2 (08:19→21:24)
[2017-09-10] MEDS: Insulin Lispro (humaLOG) 100 Units/ml Inj SC SCH ×7 (06:37→21:41)
[2017-09-10] MEDS: Insulin Detemir 100 Units/ml Inj SC SCH ×2 (08:18→21:40)
--- NOTE | 2017-09-10 08:29 | PN ---
DAILY PROGRESS NOTE DATE: 09/09/2017 SUBJECTIVE: The patient is seen today on 09/09/2017. She is not in any cardiopulmonary disease and the patient is in . PHYSICAL EXAMINATION: VITAL SIGNS: Blood pressure 129/76, temperature 97.1, respiratory rate 20, and pulse 69. HEENT: Pupils equal and reactive to light. Normal-appearing mucosa of the conjunctivae, oropharynx, and nasal membrane mucosa. NECK: Supple. No JVD. No carotid bruit. No lymph node. No thyromegaly. CHEST AND LUNGS: Bilaterally symmetrical expansion. Good air exchange. No rales. No rhonchi. CARDIOVASCULAR: PMI not localized. S1 and S2. No additional sounds. ABDOMEN: Normoactive bowel sounds. No tenderness. No organomegaly. No masses. EXTREMITIES: No cyanosis. No clubbing. No edema. CENTRAL NERVOUS SYSTEM: Alert, awake, and oriented x2. No neurological deficit could be appreciated. ASSESSMENT: 1. Recurrent cerebrovascular accident. 2. Patent foramen ovale. 3. Hypertension. 4. Type 2 diabetes mellitus. PLAN: Continue current treatment and physical therapy and follow up with Neurology as well as Physical Medicine and Rehabilitation. Fantasma Ivy MD
[2017-09-10] MEDS ORDERED: Barium Sulfate for Susp 98% w/w 340g Bottle ONE (13:18)
[2017-09-10] MEDS ORDERED: Barium Sulfate Susp 0.1% w/v, 0.1% w/w 450 mL Bottle PO ONE ×2 (13:19→13:20)
--- NOTE | 2017-09-10 15:36 | RAD ---
PROCEDURE: Modified barium swallow study. HISTORY: dysphagia COMPARISON: None available. TECHNIQUE: Under fluoroscopic guidance, barium meals of various consistency were administered to the patient by the speech pathologist. FINDINGS: No penetration or aspiration was observed during this study. A significant oral delay was encountered in this patient. IMPRESSION: No penetration or aspiration observed. Please refer to the detailed report and recommendations of the speech pathologist. 131.3 seconds of fluoro time was utilized with a total radiation cumulative dose of 5.96 mGy.
[2017-09-11] MEDS: Insulin Lispro (humaLOG) 100 Units/ml Inj SC SCH ×7 (06:34→21:04)
--- NOTE | 2017-09-11 08:02 | CP.PCM.CON ---
History of Present Illness - History of Present Illness History of Present Illness: PT seen for supportive therapy 7:40-7:58. Pt reported improved mood, depression denied, anxiety denied, pt spoke of positive therapy, affect brighter , patient adjusting increasingly well. Cognitive deficits remain and are significant. plan: Continued sup therapy and monitoring. Past Patient History - Past Medical History & Family History Past Medical History?: Yes - Past Social History Smoking Status: Never Smoked Alcohol: None Drugs: Denies Home Situation {Lives}: With Family - CARDIAC Hx Hypertension: Yes - PULMONARY Hx Respiratory Disorders: No - NEUROLOGICAL HX Cerebrovascular Accident: Yes - HEENT Hx HEENT Problems: Yes Other/Comment: uses eyeglasses for reading - RENAL Other/Comment: one kidney removed per daughters - ENDOCRINE/METABOLIC Hx Diabetes Mellitus Type 2: Yes - HEMATOLOGICAL/ONCOLOGICAL Hx Blood Disorders: No Hx AIDS: No Hx Human Immunodeficiency Virus (HIV): No - INTEGUMENTARY Hx Dermatological Problems: No - MUSCULOSKELETAL/RHEUMATOLOGICAL Hx Musculoskeletal Disorders: No Hx Falls: No - GASTROINTESTINAL Other/Comment: on evaluation sheet with hx of gangrenous cholecystitis,S/P lap cholecystectomy but daughters denies - GENITOURINARY/GYNECOLOGICAL Hx Genitourinary Disorders: No - PSYCHIATRIC Hx Psychophysiologic Disorder: No Hx Substance Use: No - SURGICAL HISTORY Hx Surgeries: Yes Other/Comment: one kidney removed per daughters - ANESTHESIA Hx Anesthesia: Yes Hx Anesthesia Reactions: No Hx Malignant Hyperthermia: No Meds Home Medications: Home Medication List Medication Instructions Recorded Confirmed Type metFORMIN [glucOPHAGE] 500 mg PO BIDWM tab 09/10/17 Rx Allergies/Adverse Reactions: Allergies Allergy/AdvReac Type Severity Reaction Status Date / Time No Known Allergies Allergy Verified 08/27/17 06:07 - Medications Medications: Current Medications Amlodipine Besylate (Norvasc) 5 mg PO DAILY [facility] Last Admin: 09/10/17 08:18 Dose: 5 mg Apixaban (Eliquis) 5 mg PO Q12 [facility] PRN Reason: Protocol Last Admin: 09/10/17 21:40 Dose: 5 mg Aspirin (Aspirin Chewable) 81 mg PO DAILY [facility] Last Admin: 09/10/17 08:18 Dose: 81 mg Atorvastatin Calcium (Lipitor) 80 mg PO HS [facility] Last Admin: 09/10/17 21:39 Dose: 80 mg Donepezil HCl (Aricept) 10 mg PO HS [facility] Last Admin: 09/10/17 21:39 Dose: 10 mg Escitalopram Oxalate (Lexapro) 5 mg PO HS [facility] Last Admin: 09/10/17 21:39 Dose: 5 mg Famotidine (Pepcid) 20 mg PO BID [facility] Last Admin: 09/10/17 16:54 Dose: 20 mg Insulin Detemir (Levemir) 10 units SC Q12 [facility] Last Admin: 09/10/17 21:40 Dose: 10 units Insulin Human Lispro (Humalog) 5 units SC AC [facility] Last Admin: 09/10/17 16:52 Dose: 5 units Insulin Human Lispro (Humalog) 0 units SC ACHS [facility] PRN Reason: Protocol Last Admin: 09/11/17 06:34 Dose: Not Given Lidocaine HCl (Lidocaine 2% Viscous) 30 ml PO Q6 PRN PRN Reason: MOUTH PAIN Losartan Potassium (Cozaar) 50 mg PO DAILY [facility] Last Admin: 09/10/17 08:17 Dose: 50 mg Metformin HCl (Glucophage) 500 mg PO BIDWM [facility] Last Admin: 09/10/17 16:54 Dose: 500 mg Nystatin (Nystop Topical Powder) 1 applic TOP 0600,1400,2200 [facility] Last Admin: 09/11/17 06:08 Dose: 1 applic Trazodone HCl (Desyrel) 25 mg PO HS PRN PRN Reason: Insomnia Results - Vital Signs Recent Vital Signs: Last Vital Signs Temp 97.7 F 09/10/17 22:00 Pulse 78 09/10/17 22:00 Resp 20 09/10/17 22:00 BP 152/73 H 09/10/17 22:00 Pulse Ox 94 L 09/10/17 22:00 - Labs Result Diagrams: 09/05/17 18:30 09/05/17 18:30 Labs: Laboratory Results - last 24 hr 09/10/17 09/10/17 09/10/17 11:54 16:30 21:35 POC Glucose (mg/dL) 137 H 101 124 H 09/11/17 05:40 POC Glucose (mg/dL) 99
[2017-09-11] MEDS: Insulin Detemir 100 Units/ml Inj SC SCH ×2 (08:05→21:35)
--- NOTE | 2017-09-11 17:50 | CP.PCM.PN ---
Subjective - Date & Time of Evaluation Date of Evaluation: 09/11/17 Time of Evaluation: 17:49 - Subjective Subjective: Patient seen in the room much more alert and smiling and interactive ambulated 25' with WBQC and mod A which is an improvement in assist continue current care Objective - Vital Signs/Intake and Output Vital Signs (last 24 hours): Temp Pulse Resp BP Pulse Ox 97.9 F 78 18 141/77 97 09/11/17 08:01 09/11/17 08:06 09/11/17 08:01 09/11/17 08:06 09/11/17 08:01 - Medications Medications: Current Medications Amlodipine Besylate (Norvasc) 5 mg PO DAILY [facility] Last Admin: 09/11/17 08:06 Dose: 5 mg Apixaban (Eliquis) 5 mg PO Q12 [facility] PRN Reason: Protocol Last Admin: 09/11/17 08:04 Dose: 5 mg Aspirin (Aspirin Chewable) 81 mg PO DAILY [facility] Last Admin: 09/11/17 08:05 Dose: 81 mg Atorvastatin Calcium (Lipitor) 80 mg PO HS [facility] Last Admin: 09/10/17 21:39 Dose: 80 mg Donepezil HCl (Aricept) 10 mg PO HS [facility] Last Admin: 09/10/17 21:39 Dose: 10 mg Escitalopram Oxalate (Lexapro) 5 mg PO HS [facility] Last Admin: 09/10/17 21:39 Dose: 5 mg Famotidine (Pepcid) 20 mg PO BID [facility] Last Admin: 09/11/17 16:45 Dose: 20 mg Insulin Detemir (Levemir) 10 units SC Q12 [facility] Last Admin: 09/11/17 08:05 Dose: 10 units Insulin Human Lispro (Humalog) 5 units SC AC [facility] Last Admin: 09/11/17 16:44 Dose: 5 units Insulin Human Lispro (Humalog) 0 units SC ACHS [facility] PRN Reason: Protocol Last Admin: 09/11/17 16:45 Dose: Not Given Lidocaine HCl (Lidocaine 2% Viscous) 30 ml PO Q6 PRN PRN Reason: MOUTH PAIN Losartan Potassium (Cozaar) 50 mg PO DAILY [facility] Last Admin: 09/11/17 08:05 Dose: 50 mg Metformin HCl (Glucophage) 500 mg PO BIDWM [facility] Last Admin: 09/11/17 16:45 Dose: 500 mg Nystatin (Nystop Topical Powder) 1 applic TOP 0600,1400,2200 [facility] Last Admin: 09/11/17 16:44 Dose: 1 applic Trazodone HCl (Desyrel) 25 mg PO HS PRN PRN Reason: Insomnia - Labs Labs: 09/05/17 18:30 09/05/17 18:30 PT 11.9 Seconds (9.8-13.1) 08/29/17 05:30 INR 1.1 (0.9-1.2) 08/29/17 05:30
[2017-09-12] MEDS: Insulin Lispro (humaLOG) 100 Units/ml Inj SC SCH ×7 (06:46→21:00)
[2017-09-12] MEDS: Insulin Detemir 100 Units/ml Inj SC SCH ×2 (08:22→21:13)
[2017-09-13] MEDS: Insulin Lispro (humaLOG) 100 Units/ml Inj SC SCH ×7 (06:30→21:03)
--- NOTE | 2017-09-13 06:37 | PN ---
DATE: 09/11/2017 DAILY PROGRESS NOTE SUBJECTIVE: She was not in any cardiopulmonary distress. PHYSICAL EXAMINATION: VITAL SIGNS: Blood pressure 140/70, temperature 96.8, respiratory rate 20, and pulse 73. HEENT: Pupils equal and reactive to light. Normal-appearing mucosa of the conjunctivae, oropharynx, and nasal membrane mucosa. NECK: Supple. No JVD. No carotid bruit. No lymph node. No thyromegaly. CHEST AND LUNGS: Bilaterally symmetrical expansion. Good air exchange. No rales. No rhonchi. CARDIOVASCULAR: PMI not localized. S1 and S2. No additional sounds. ABDOMEN: Normoactive bowel sounds. No tenderness. No organomegaly. No masses. EXTREMITIES: No cyanosis. No clubbing. No edema. CENTRAL NERVOUS SYSTEM: Alert, awake, and oriented x1 and the patient has right-sided hemiparesis. ASSESSMENT: 1. Recurrent cerebrovascular accident. 2. Patent foramen ovale. 3. Hypertension. 4. Type 2 diabetes mellitus. PLAN: Continue current medications and management, physical therapy and occupational therapy. Fantasma Ivy MD
[2017-09-13] MEDS: Insulin Detemir 100 Units/ml Inj SC SCH ×2 (08:30→21:28)
[2017-09-14] MEDS: Insulin Lispro (humaLOG) 100 Units/ml Inj SC SCH ×7 (06:42→21:13)
[2017-09-14] MEDS: Insulin Detemir 100 Units/ml Inj SC SCH ×2 (08:04→21:56)
--- NOTE | 2017-09-14 17:36 | CP.PCM.PN ---
Subjective - Date & Time of Evaluation Date of Evaluation: 09/14/17 Time of Evaluation: 11:30 - Subjective Subjective: Patient seen and examined. Denied any complaint. Objective - Vital Signs/Intake and Output Vital Signs (last 24 hours): Temp Pulse Resp BP Pulse Ox 98.2 F 75 20 151/65 H 95 09/14/17 07:53 09/14/17 08:06 09/14/17 07:53 09/14/17 08:06 09/14/17 07:53 - Medications Medications: Current Medications Amlodipine Besylate (Norvasc) 5 mg PO DAILY [facility] Last Admin: 09/14/17 08:06 Dose: 5 mg Apixaban (Eliquis) 5 mg PO Q12 [facility] PRN Reason: Protocol Last Admin: 09/14/17 08:05 Dose: 5 mg Aspirin (Aspirin Chewable) 81 mg PO DAILY [facility] Last Admin: 09/14/17 08:06 Dose: 81 mg Atorvastatin Calcium (Lipitor) 80 mg PO HS [facility] Last Admin: 09/13/17 21:10 Dose: 80 mg Donepezil HCl (Aricept) 10 mg PO HS [facility] Last Admin: 09/13/17 21:09 Dose: 10 mg Escitalopram Oxalate (Lexapro) 5 mg PO HS [facility] Last Admin: 09/13/17 21:10 Dose: 5 mg Famotidine (Pepcid) 20 mg PO BID [facility] Last Admin: 09/14/17 16:44 Dose: 20 mg Insulin Detemir (Levemir) 10 units SC Q12 [facility] Last Admin: 09/14/17 08:04 Dose: 10 units Insulin Human Lispro (Humalog) 5 units SC AC [facility] Last Admin: 09/14/17 16:41 Dose: 5 units Insulin Human Lispro (Humalog) 0 units SC ACHS [facility] PRN Reason: Protocol Last Admin: 09/14/17 16:42 Dose: 3 units Lidocaine HCl (Lidocaine 2% Viscous) 30 ml PO Q6 PRN PRN Reason: MOUTH PAIN Losartan Potassium (Cozaar) 50 mg PO DAILY [facility] Last Admin: 09/14/17 08:06 Dose: 50 mg Metformin HCl (Glucophage) 500 mg PO BIDWM [facility] Last Admin: 09/14/17 16:44 Dose: 500 mg Nystatin (Nystop Topical Powder) 1 applic TOP 0600,1400,2200 [facility] Last Admin: 09/14/17 13:27 Dose: 1 applic Trazodone HCl (Desyrel) 25 mg PO HS PRN PRN Reason: Insomnia - Labs Labs: 09/05/17 18:30 09/05/17 18:30 PT 11.9 Seconds (9.8-13.1) 08/29/17 05:30 INR 1.1 (0.9-1.2) 08/29/17 05:30 - Constitutional Appears: No Acute Distress - Head Exam Head Exam: ATRAUMATIC - Eye Exam Eye Exam: absent: Scleral icterus - ENT Exam ENT Exam: Mucous Membranes Moist - Neck Exam Neck Exam: absent: Meningismus - Respiratory Exam Respiratory Exam: absent: Rales, Rhonchi, Wheezes, Respiratory Distress - Cardiovascular Exam Cardiovascular Exam: REGULAR RHYTHM, +S1, +S2 - GI/Abdominal Exam GI & Abdominal Exam: Soft. absent: Tenderness - Rectal Exam Rectal Exam: Deferred - Extremities Exam Extremities Exam: absent: Pedal Edema - Neurological Exam Neurological Exam: Alert, Oriented x3 - Psychiatric Exam Psychiatric exam: Normal Affect - Skin Skin Exam: Dry, Intact Assessment and Plan - Assessment and Plan (Free Text) Assessment: 72 yo female with history of DM2, HTN and HLD admitted at [facility] on 08/18/2017 because of right sided weakness and was found to have Acute CVA. She was transferred to [facility] and was admitted at [facility] for continuation of PT/OT. 1. Acute CVA continue ASA, statin continue PT/OT Dr Carcamo on physiatry consult 2. DM2 BS controlled slightly uncontrolled Levemir 10units SC q 12hrs Lispro 5 units SC AC Metformin 500mg POBID 3. HTN BP stable continue Losartan 50mg PO daily 4. HLD continue Lipitor 80mg PO HS
--- NOTE | 2017-09-14 18:25 | CP.PCM.PN ---
Subjective - Date & Time of Evaluation Date of Evaluation: 09/14/17 Time of Evaluation: 18:24 - Subjective Subjective: Patient seen in the room with family present denies sob/cp no right UE return yet in good spirits ambulating 50' WBQC with mod A continue current care Objective - Vital Signs/Intake and Output Vital Signs (last 24 hours): Temp Pulse Resp BP Pulse Ox 98.2 F 75 20 151/65 H 95 09/14/17 07:53 09/14/17 08:06 09/14/17 07:53 09/14/17 08:06 09/14/17 07:53 - Medications Medications: Current Medications Amlodipine Besylate (Norvasc) 5 mg PO DAILY [facility] Last Admin: 09/14/17 08:06 Dose: 5 mg Apixaban (Eliquis) 5 mg PO Q12 [facility] PRN Reason: Protocol Last Admin: 09/14/17 08:05 Dose: 5 mg Aspirin (Aspirin Chewable) 81 mg PO DAILY [facility] Last Admin: 09/14/17 08:06 Dose: 81 mg Atorvastatin Calcium (Lipitor) 80 mg PO HS [facility] Last Admin: 09/13/17 21:10 Dose: 80 mg Donepezil HCl (Aricept) 10 mg PO HS [facility] Last Admin: 09/13/17 21:09 Dose: 10 mg Escitalopram Oxalate (Lexapro) 5 mg PO HS [facility] Last Admin: 09/13/17 21:10 Dose: 5 mg Famotidine (Pepcid) 20 mg PO BID [facility] Last Admin: 09/14/17 16:44 Dose: 20 mg Insulin Detemir (Levemir) 10 units SC Q12 [facility] Last Admin: 09/14/17 08:04 Dose: 10 units Insulin Human Lispro (Humalog) 5 units SC AC [facility] Last Admin: 09/14/17 16:41 Dose: 5 units Insulin Human Lispro (Humalog) 0 units SC ACHS [facility] PRN Reason: Protocol Last Admin: 09/14/17 16:42 Dose: 3 units Lidocaine HCl (Lidocaine 2% Viscous) 30 ml PO Q6 PRN PRN Reason: MOUTH PAIN Losartan Potassium (Cozaar) 50 mg PO DAILY [facility] Last Admin: 09/14/17 08:06 Dose: 50 mg Metformin HCl (Glucophage) 500 mg PO BIDWM [facility] Last Admin: 09/14/17 16:44 Dose: 500 mg Nystatin (Nystop Topical Powder) 1 applic TOP 0600,1400,2200 [facility] Last Admin: 09/14/17 13:27 Dose: 1 applic Trazodone HCl (Desyrel) 25 mg PO HS PRN PRN Reason: Insomnia - Labs Labs: 09/05/17 18:30 09/05/17 18:30 PT 11.9 Seconds (9.8-13.1) 08/29/17 05:30 INR 1.1 (0.9-1.2) 08/29/17 05:30
--- NOTE | 2017-09-15 02:58 | PN ---
DATE: 09/13/2017 DAILY PROGRESS NOTE SUBJECTIVE: The patient is seen on 09/13/2017. She is on antidepressant and the patient was not seen crying and she is actively participating in physical therapy . PHYSICAL EXAMINATION: VITAL SIGNS: Blood pressure 148/75, temperature 97.5, respiratory rate 19, and pulse 77. HEENT: Pupils equal and reactive to light. Normal-appearing mucosa of the conjunctivae, oropharynx, and nasal membrane mucosa. NECK: Supple. No JVD. No carotid bruit. No lymph node. No thyromegaly. CHEST AND LUNGS: Bilaterally symmetrical expansion. Good air exchange. No rales. No rhonchi. CARDIOVASCULAR: PMI not localized. S1 and S2. No additional sounds. ABDOMEN: Normoactive bowel sounds. No tenderness. No organomegaly. No masses. EXTREMITIES: No cyanosis. No clubbing. No edema. CENTRAL NERVOUS SYSTEM: Alert, awake, and oriented x1 and moves all extremities except right-sided weakness. ASSESSMENT: Recurrent cerebrovascular accident, hypertension, type 2 diabetes mellitus, and patent foramen ovale. PLAN: Continue current medications including escitalopram for depression. Continue physical therapy and occupational therapy. Fantasma Ivy MD
[2017-09-15] MEDS: Insulin Lispro (humaLOG) 100 Units/ml Inj SC SCH ×7 (07:24→21:33)
[2017-09-15] MEDS: Insulin Detemir 100 Units/ml Inj SC SCH ×2 (08:28→21:28)
--- NOTE | 2017-09-15 13:29 | PSY.TMCNF ---
Nursing - Vital Signs Vital Signs (Last 8 hours): Vital Signs 09/15/17 09/15/17 09/15/17 08:27 08:29 09:00 Temperature 98.1 F Pulse Rate 80 80 Respiratory 20 Rate Blood Pressure 149/89 149/89 149/89 O2 Sat by Pulse Oximetry 09/15/17 09:25 Temperature 97.2 F L Pulse Rate 80 Respiratory 20 Rate Blood Pressure 149/89 O2 Sat by Pulse 97 Oximetry Pain: 0 - Precautions: Precautions: Fall Prevention, Aspiration - Medications/Other Issues Comment: Pt is at moderate nutritional risk. Goals: 1. Pt to consume 75-100% of meals- partially met, continue. 2. Blood glucoses to between 70-180 mg/dl- partially met, continue. Follow-up assessment due by 09/21/17. - Consults Comment: Dr. spencer, Dr. Miranda, Dr. Aguayo - Toileting Toileting: Dependent - Bladder Management Bladder Pattern: Normal, Incontinent Voiding Method: Toilet, Bedpan, Diaper Bladder Management: Dependent Frequency of Accidents: >5 - Bowel Management Bowel Pattern: Incontinent Bowel Management: Dependent Frequency of Accidents: >5 - Transfers Transfers: Dependent - ADL's ADL's: Maximal Assistance - Pain Management Comments: denies any pain - Patient/Family Teaching Comments: N/A - Goals/Time Frame Comments: PER MULTIDISCIPLINARY CARE PLAN GOALS - Provider Provider: SANDEEP BLEVINSN RN CRRN Physical Therapy - Bed Mobility Bed Mobility: Verbal Cues, Contact Guard, Moderate Assistance - Transfers Wheelchair to Mat: Verbal Cues, Moderate Assistance Sit to Stand: Verbal Cues, Moderate Assistance - Ambulation Level of Assistance: Verbal Cues, Moderate Assistance Distance (ft.): 50 Assistive Devices: Wide base quad cane Orthoses: [employer]-mansoor Comment: -level surface. -[employer]-mansoor sling, WBQC, WC follow for safety. -NO DF wrap utilized at this time. -patient is able to flex at hip but lacks control for motor control/coordination of all motions required for gait in the RLE. -patient tends to lead with LLE and leaves RLE behind; when she is able to progress RLE she utilizes hip adductors and impaired step length. -requires assistance for weight shifting especially towards left side and cues for upright gaze. -manual facilitation provided to improve weight shifting and improve rotation towards the left to facilitate rightwards stepping to improve motor control. -x 2 trials with seated rest break - Stair Negotiation Stairs: Level of Assistance: Verbal Cues, Moderate Assistance, Maximum Assistance Stairs: Assistive Devices: Left Handrail Comment: 1 flight of 8 inch steps with L rail and step to pattern, RUE giv- mansoor. -mod A on ascent for trunk control and RLE management; mod to max A on descent for trunk control, and RLE progression/stability during descent - Standing Balance Static Stand: Moderate Assistance Dynamic Stand: Moderate Assistance, Maximal Assistance - Pain Pain (assessed during therapy session): 0 Comment: pt denies pain - Insight/Carryover Insight/Carryover: Fair - Patient/Family Education Comment: -safety, therapy goals, therapy schedule, visitation policies, stroke recovery, POC, mobility, midline orientation, DME, mobility techniques - Assessment/Plan Assessment: Pt is agreeable to participate in 1:1 and group recreation therapy sessions. Pt participates in modified card tasks and leisure tasks. Pt at times perseverates on prior directions or cues and requires redirection to task. Pt demonstrated improved number recognition although continues to present with decrease color recognition. Pt's mood has demonstrated improvement. Pt will continue to benefit from participating in recreation therapy sessions on unit. - Goals Timeframe: 7 days Goals: FEEDING: I/setup. GROOMING: I/setup seated for oral hygiene, washing/ drying face and B hands. UPPER BODY DRESSING/BATHING: Moderate assist and verbal cues, nunu-techniques. *LOWER BODY BATHING/DRESSING: Mod/Max assist and verbal cues with assistive devices. *RUE STRENGTH: increase to 2-/5 to 2/5 + so can use as gross stabiliaer during adls, transfers and mobility. *W/C MANAGEMENT/PROPULSION: 75 feet with Min assist and verbal cues, manage B brakes with min assist and verbal cues. *BED MOBILITY: supine<->sit with min assist and verbal cues with use of bedrails. *CAREGIVER TO BE I with ROM/RUE Management for pt, assist pt with transfers/bed mobility and self care with S from staff prn. [ End ] - Provider License Number: [id number] Occupational Therapy - Arousal/Attention/Orientation Patient Orientation: Person, Place - ADL/IADL Self Feeding: Verbal Cues, Set-up Help, Minimal Assistance Grooming: Maximum Assistance Bathing-Upper Extremity: Verbal Cues, Set-up Help, Maximum Assistance Bathing-Lower Extremity: Maximum Assistance, Dependent Dressing-Upper Extremity: Maximum Assistance Dressing-Lower Extremity: Maximum Assistance, Dependent Comment: -shower transfers: Max assist & verbal cues - Sitting Balance Static Sitting: Contact Guard Assist Dynamic Sitting: Reaches across midline, Reaches out of base of support, Reaches within base of support, Minimal Assistance, Moderate Assistance - Transfers Wheelchair to Bed Transfers: Verbal Cues, Set-up Help, Moderate Assistance, Maximum Assistance Toilet Transfers: Verbal Cues, Set-up Help, Moderate Assistance, Maximum Assistance Comment: -commode transfers - Wheelchair Management Level of Assistance: Verbal Cues, Set-up Help, Moderate Assistance, Maximum Assistance - Upper Extremity Status Right Upper Extremity Comment: PROM WFL, no AROM noted at this time Left Upper Extremity Comment: A/PROM IS WFLS; no limitations noted - Pain Pain (assessed during therapy session): 0 Comment: pt denies pain - Insight/Carryover Insight/Carryover: Fair - Patient/Family Education Comment: -safety, therapy goals, therapy schedule, visitation policies, stroke recovery, POC, mobility, midline orientation, DME, mobility techniques - Assessment/Plan Assessment: Pt is agreeable to participate in 1:1 and group recreation therapy sessions. Pt participates in modified card tasks and leisure tasks. Pt at times perseverates on prior directions or cues and requires redirection to task. Pt demonstrated improved number recognition although continues to present with decrease color recognition. Pt's mood has demonstrated improvement. Pt will continue to benefit from participating in recreation therapy sessions on unit. - Goals Timeframe: 7 days Goals: FEEDING: I/setup. GROOMING: I/setup seated for oral hygiene, washing/ drying face and B hands. UPPER BODY DRESSING/BATHING: Moderate assist and verbal cues, nunu-techniques. *LOWER BODY BATHING/DRESSING: Mod/Max assist and verbal cues with assistive devices. *RUE STRENGTH: increase to 2-/5 to 2/5 + so can use as gross stabiliaer during adls, transfers and mobility. *W/C MANAGEMENT/PROPULSION: 75 feet with Min assist and verbal cues, manage B brakes with min assist and verbal cues. *BED MOBILITY: supine<->sit with min assist and verbal cues with use of bedrails. *CAREGIVER TO BE I with ROM/RUE Management for pt, assist pt with transfers/bed mobility and self care with S from staff prn. [ End ] - Provider Therapist: BREANNA Little License Number: [id number] Speech Therapy - Consult Information Patient on Program: Yes Medical Diagnosis: CVA Treatment Diagnosis: -moderate receptive/expressive aphasia. -mild oropharyngeal dysphagia - Assessment Expressive Language Impairment: Moderate Receptive Language Impairment: Moderate Dysphagia/Swallowing Impairment: Mild - Plan Assessment: Pt is agreeable to participate in 1:1 and group recreation therapy sessions. Pt participates in modified card tasks and leisure tasks. Pt at times perseverates on prior directions or cues and requires redirection to task. Pt demonstrated improved number recognition although continues to present with decrease color recognition. Pt's mood has demonstrated improvement. Pt will continue to benefit from participating in recreation therapy sessions on unit. - Provider Therapist: Nathalie Giraldo License Number: [id number] Recreational Therapy - Participation Participation: Participates in Individual and/or Group Sessions - Attendance Attendance: 3-5 times per week - Activities Leisure Activities: Cards and Games - Socialization Level of Socialization: Responds freely, but does not initiate, Requires 1:1 guidance to respond, Minimal initiation of interaction to request basic needs - Assessment Assessment/Plan: Pt is agreeable to participate in 1:1 and group recreation therapy sessions. Pt participates in modified card tasks and leisure tasks. Pt at times perseverates on prior directions or cues and requires redirection to task. Pt demonstrated improved number recognition although continues to present with decrease color recognition. Pt's mood has demonstrated improvement. Pt will continue to benefit from participating in recreation therapy sessions on unit. Problems Currently Limiting Participation: aphasia, R side UE and LE weakness, R side visual inattention Goals and Time Frame: Pt will be encouraged to participate in 1:1 and group recreation therapy session 3-5x week to improve attention to task, memory recall , direction following, command following, and improving speech intelligbility. - Provider Therapist: Elzbieta Bridges, [employer] TECHNICIAN #[id number] Nutrition - Current Diet Current Diet/ Supplement/ Feedings: Advanced bite-size, moderate consistent CHO , low fat/cholesterol, 2 gm Na diet with thin liquids, Glucerna shake x1 daily. - Appetite Percent Meal Consumed: 50-74% - Comments Comments: N/A - Assessment/Goals/Time Frame Assessment/Goals/Time Frame: Pt is at moderate nutritional risk. Goals: 1. Pt to consume 75-100% of meals- partially met, continue. 2. Blood glucoses to between 70-180 mg/dl- partially met, continue. Follow-up assessment due by 09/21. - Provider Provider: Scarlett Otero MS, RD Case Management - Psychosocial Assessment Support Systems: Resides with spouse; Has 6 children who are supportive and involved. Sara Warren/daughter/[phone]. Daughter Joya is her paid [employer] CLERK through [employer] Psychological Interventions/Needs: Pt noted to be tearful and daughters report mood change in patient; Psychology consult placed per nursing Patient/Family Meeting: CM met with pt and daughters Joya/Ines/Sara with pt 's consent as well as rehab team Intervention/Goal/Outcome:: 1. Tenatative D/C date 09/19/17 ; Recommendations for [facility], after lengthy discussion with CM and team, family in agreement with [facility] , list of local facilities provided to family, tours to be scheduled and family to provide top 3 choices by mid next week. CM to continue following. 2. Continued emotional support. - Discharge Plan Discharge Plan: Subacute care - Provider Provider: LUKAS Mike, ROAD CUTTER License Number: [id number] Rehabilitation Plan - Treatment Plan Treatment Plan: Physical Therapy, Occupational Therapy, Speech, Dietary, Patient /Family Education - Discharge Plan Estimated Date of Discharge: 09/19/17 Discharge to: Subacute
--- NOTE | 2017-09-15 13:46 | CP.PCM.PN ---
Subjective - Date & Time of Evaluation Date of Evaluation: 09/15/17 Time of Evaluation: 13:44 - Subjective Subjective: Patient seen in the room comfortable and smiling improving right LE, still dense right UE doing stairs now with MAX x1 she really has improved in spite of significant neuro deficits excellent work by the staff. continue current care Objective - Vital Signs/Intake and Output Vital Signs (last 24 hours): Temp Pulse Resp BP Pulse Ox 97.2 F L 80 20 149/89 97 09/15/17 09:25 09/15/17 09:25 09/15/17 09:25 09/15/17 09:25 09/15/17 09:25 - Medications Medications: Current Medications Amlodipine Besylate (Norvasc) 5 mg PO DAILY [facility] Last Admin: 09/15/17 08:27 Dose: 5 mg Apixaban (Eliquis) 5 mg PO Q12 [facility] PRN Reason: Protocol Last Admin: 09/15/17 08:26 Dose: 5 mg Aspirin (Aspirin Chewable) 81 mg PO DAILY [facility] Last Admin: 09/15/17 08:27 Dose: 81 mg Atorvastatin Calcium (Lipitor) 80 mg PO HS [facility] Last Admin: 09/14/17 21:11 Dose: 80 mg Donepezil HCl (Aricept) 10 mg PO HS [facility] Last Admin: 09/14/17 21:11 Dose: 10 mg Escitalopram Oxalate (Lexapro) 5 mg PO HS [facility] Last Admin: 09/14/17 21:11 Dose: 5 mg Famotidine (Pepcid) 20 mg PO BID [facility] Last Admin: 09/15/17 08:26 Dose: 20 mg Insulin Detemir (Levemir) 10 units SC Q12 [facility] Last Admin: 09/15/17 08:28 Dose: 10 units Insulin Human Lispro (Humalog) 5 units SC AC [facility] Last Admin: 09/15/17 12:22 Dose: 5 units Insulin Human Lispro (Humalog) 0 units SC ACHS [facility] PRN Reason: Protocol Last Admin: 09/15/17 12:23 Dose: Not Given Lidocaine HCl (Lidocaine 2% Viscous) 30 ml PO Q6 PRN PRN Reason: MOUTH PAIN Losartan Potassium (Cozaar) 50 mg PO DAILY [facility] Last Admin: 09/15/17 08:29 Dose: 50 mg Metformin HCl (Glucophage) 500 mg PO BIDWM [facility] Last Admin: 09/15/17 08:27 Dose: 500 mg Nystatin (Nystop Topical Powder) 1 applic TOP 0600,1400,2200 [facility] Last Admin: 09/15/17 13:01 Dose: 1 applic Trazodone HCl (Desyrel) 25 mg PO HS PRN PRN Reason: Insomnia - Labs Labs: 09/05/17 18:30 09/05/17 18:30 PT 11.9 Seconds (9.8-13.1) 08/29/17 05:30 INR 1.1 (0.9-1.2) 08/29/17 05:30
[2017-09-16] MEDS: Insulin Lispro (humaLOG) 100 Units/ml Inj SC SCH ×7 (07:30→21:03)
[2017-09-16] MEDS: Insulin Detemir 100 Units/ml Inj SC SCH ×2 (08:25→21:20)
--- NOTE | 2017-09-16 14:27 | CP.PCM.PN ---
Subjective - Date & Time of Evaluation Date of Evaluation: 09/16/17 Time of Evaluation: 13:20 - Subjective Subjective: Patient seen and examined. [place] okay. No complaint. Objective - Vital Signs/Intake and Output Vital Signs (last 24 hours): Temp Pulse Resp BP Pulse Ox 97.8 F 96 H 19 140/73 96 09/16/17 08:31 09/16/17 09:18 09/16/17 08:31 09/16/17 09:18 09/16/17 08:31 - Medications Medications: Current Medications Amlodipine Besylate (Norvasc) 5 mg PO DAILY [facility] Last Admin: 09/16/17 09:18 Dose: 5 mg Apixaban (Eliquis) 5 mg PO Q12 [facility] PRN Reason: Protocol Last Admin: 09/16/17 08:17 Dose: 5 mg Aspirin (Aspirin Chewable) 81 mg PO DAILY [facility] Last Admin: 09/16/17 08:18 Dose: 81 mg Atorvastatin Calcium (Lipitor) 80 mg PO HS [facility] Last Admin: 09/15/17 21:06 Dose: 80 mg Donepezil HCl (Aricept) 10 mg PO HS [facility] Last Admin: 09/15/17 21:07 Dose: 10 mg Escitalopram Oxalate (Lexapro) 5 mg PO HS [facility] Last Admin: 09/15/17 21:07 Dose: 5 mg Famotidine (Pepcid) 20 mg PO BID [facility] Last Admin: 09/16/17 08:23 Dose: 20 mg Insulin Detemir (Levemir) 10 units SC Q12 [facility] Last Admin: 09/16/17 08:25 Dose: 10 units Insulin Human Lispro (Humalog) 5 units SC AC [facility] Last Admin: 09/16/17 12:18 Dose: 5 units Insulin Human Lispro (Humalog) 0 units SC ACHS [facility] PRN Reason: Protocol Last Admin: 09/16/17 12:18 Dose: Not Given Lidocaine HCl (Lidocaine 2% Viscous) 30 ml PO Q6 PRN PRN Reason: MOUTH PAIN Losartan Potassium (Cozaar) 50 mg PO DAILY [facility] Last Admin: 09/16/17 08:19 Dose: 50 mg Metformin HCl (Glucophage) 500 mg PO BIDWM [facility] Last Admin: 09/16/17 08:15 Dose: 500 mg Nystatin (Nystop Topical Powder) 1 applic TOP 0600,1400,2200 [facility] Last Admin: 09/16/17 05:31 Dose: 1 applic Trazodone HCl (Desyrel) 25 mg PO HS PRN PRN Reason: Insomnia - Labs Labs: 09/05/17 18:30 09/05/17 18:30 PT 11.9 Seconds (9.8-13.1) 08/29/17 05:30 INR 1.1 (0.9-1.2) 08/29/17 05:30 - Constitutional Appears: No Acute Distress - Head Exam Head Exam: ATRAUMATIC - Eye Exam Eye Exam: absent: Scleral icterus - ENT Exam ENT Exam: Mucous Membranes Moist - Neck Exam Neck Exam: absent: Meningismus - Respiratory Exam Respiratory Exam: absent: Rales, Rhonchi, Wheezes, Respiratory Distress - Cardiovascular Exam Cardiovascular Exam: REGULAR RHYTHM, +S1, +S2 - GI/Abdominal Exam GI & Abdominal Exam: Soft. absent: Tenderness - Rectal Exam Rectal Exam: Deferred - Neurological Exam Neurological Exam: Alert, Oriented x3 - Psychiatric Exam Psychiatric exam: Normal Affect - Skin Skin Exam: Dry, Intact Assessment and Plan - Assessment and Plan (Free Text) Assessment: 72 yo female with history of DM2, HTN and HLD admitted at [facility] on 08/18/2017 because of right sided weakness and was found to have Acute CVA. She was transferred to [facility] and was admitted at Acute Rehab for continuation of PT/OT. 1. Acute CVA tolerating PT/OT continue ASA, statin control and monitor BP 2. DM2 BS controlled Levemir 10 units SC q 12hrs Lispro 5 units SC AC Metformin 500mg PO BID 3. HTN BP stable continue Losartan 50mg PO daily 4. HLD continue Lipitor 80mg PO HS 5. DVT Prophylaxis on Apixaban 5mg PO q 12hrs
--- NOTE | 2017-09-16 16:42 | CP.PCM.PN ---
Subjective - Date & Time of Evaluation Date of Evaluation: 09/16/17 Time of Evaluation: 16:41 - Subjective Subjective: Patient seen in the room doing ok in good spirits d/w PT and appears to be plateauing to some degree continue current care will be going to [facility] this weekend Objective - Vital Signs/Intake and Output Vital Signs (last 24 hours): Temp Pulse Resp BP Pulse Ox 97.8 F 96 H 19 140/73 96 09/16/17 08:31 09/16/17 09:18 09/16/17 08:31 09/16/17 09:18 09/16/17 08:31 - Medications Medications: Current Medications Amlodipine Besylate (Norvasc) 5 mg PO DAILY [facility] Last Admin: 09/16/17 09:18 Dose: 5 mg Apixaban (Eliquis) 5 mg PO Q12 [facility] PRN Reason: Protocol Last Admin: 09/16/17 08:17 Dose: 5 mg Aspirin (Aspirin Chewable) 81 mg PO DAILY [facility] Last Admin: 09/16/17 08:18 Dose: 81 mg Atorvastatin Calcium (Lipitor) 80 mg PO HS [facility] Last Admin: 09/15/17 21:06 Dose: 80 mg Donepezil HCl (Aricept) 10 mg PO HS [facility] Last Admin: 09/15/17 21:07 Dose: 10 mg Escitalopram Oxalate (Lexapro) 5 mg PO HS [facility] Last Admin: 09/15/17 21:07 Dose: 5 mg Famotidine (Pepcid) 20 mg PO BID [facility] Last Admin: 09/16/17 08:23 Dose: 20 mg Insulin Detemir (Levemir) 10 units SC Q12 [facility] Last Admin: 09/16/17 08:25 Dose: 10 units Insulin Human Lispro (Humalog) 5 units SC AC [facility] Last Admin: 09/16/17 12:18 Dose: 5 units Insulin Human Lispro (Humalog) 0 units SC ACHS [facility] PRN Reason: Protocol Last Admin: 09/16/17 12:18 Dose: Not Given Lidocaine HCl (Lidocaine 2% Viscous) 30 ml PO Q6 PRN PRN Reason: MOUTH PAIN Losartan Potassium (Cozaar) 50 mg PO DAILY [facility] Last Admin: 09/16/17 08:19 Dose: 50 mg Metformin HCl (Glucophage) 500 mg PO BIDWM [facility] Last Admin: 09/16/17 08:15 Dose: 500 mg Nystatin (Nystop Topical Powder) 1 applic TOP 0600,1400,2200 [facility] Last Admin: 09/16/17 14:52 Dose: 1 applic Trazodone HCl (Desyrel) 25 mg PO HS PRN PRN Reason: Insomnia - Labs Labs: 09/05/17 18:30 09/05/17 18:30 PT 11.9 Seconds (9.8-13.1) 08/29/17 05:30 INR 1.1 (0.9-1.2) 08/29/17 05:30
[2017-09-17] MEDS: Insulin Lispro (humaLOG) 100 Units/ml Inj SC SCH ×7 (06:30→21:00)
[2017-09-17] MEDS: Insulin Detemir 100 Units/ml Inj SC SCH ×2 (08:04→21:14)
--- NOTE | 2017-09-17 17:09 | CP.PCM.PN ---
Subjective - Date & Time of Evaluation Date of Evaluation: 09/17/17 Time of Evaluation: 17:07 - Subjective Subjective: Patient seen in the room with daughter present denies sob/cp or joint pain family is deciding on [facility] at this point She clearly needs further therapies instead of going home. Objective - Vital Signs/Intake and Output Vital Signs (last 24 hours): Temp Pulse Resp BP Pulse Ox 97.3 F L 78 20 146/72 96 09/17/17 08:16 09/17/17 08:16 09/17/17 08:16 09/17/17 08:16 09/17/17 08:16 - Medications Medications: Current Medications Amlodipine Besylate (Norvasc) 5 mg PO DAILY [facility] Last Admin: 09/17/17 08:05 Dose: 5 mg Apixaban (Eliquis) 5 mg PO Q12 [facility] PRN Reason: Protocol Last Admin: 09/17/17 08:04 Dose: 5 mg Aspirin (Aspirin Chewable) 81 mg PO DAILY [facility] Last Admin: 09/17/17 08:04 Dose: 81 mg Atorvastatin Calcium (Lipitor) 80 mg PO HS [facility] Last Admin: 09/16/17 21:07 Dose: 80 mg Donepezil HCl (Aricept) 10 mg PO HS [facility] Last Admin: 09/16/17 21:07 Dose: 10 mg Escitalopram Oxalate (Lexapro) 5 mg PO HS [facility] Last Admin: 09/16/17 21:07 Dose: 5 mg Famotidine (Pepcid) 20 mg PO BID [facility] Last Admin: 09/17/17 16:59 Dose: 20 mg Insulin Detemir (Levemir) 10 units SC Q12 [facility] Last Admin: 09/17/17 08:04 Dose: 10 units Insulin Human Lispro (Humalog) 5 units SC AC [facility] Last Admin: 09/17/17 16:58 Dose: 5 units Insulin Human Lispro (Humalog) 0 units SC ACHS [facility] PRN Reason: Protocol Last Admin: 09/17/17 16:38 Dose: Not Given Lidocaine HCl (Lidocaine 2% Viscous) 30 ml PO Q6 PRN PRN Reason: MOUTH PAIN Losartan Potassium (Cozaar) 50 mg PO DAILY [facility] Last Admin: 09/17/17 08:05 Dose: 50 mg Metformin HCl (Glucophage) 500 mg PO BIDWM [facility] Last Admin: 09/17/17 16:59 Dose: 500 mg Nystatin (Nystop Topical Powder) 1 applic TOP 0600,1400,2200 [facility] Last Admin: 09/17/17 14:07 Dose: 1 applic Trazodone HCl (Desyrel) 25 mg PO HS PRN PRN Reason: Insomnia - Labs Labs: 09/05/17 18:30 09/05/17 18:30 PT 11.9 Seconds (9.8-13.1) 08/29/17 05:30 INR 1.1 (0.9-1.2) 08/29/17 05:30
[2017-09-18] MEDS: Insulin Lispro (humaLOG) 100 Units/ml Inj SC SCH ×7 (06:30→21:37)
[2017-09-18] MEDS: Insulin Detemir 100 Units/ml Inj SC SCH ×2 (08:07→21:55)
--- NOTE | 2017-09-18 12:42 | PN ---
DAILY PROGRESS NOTE DATE: 09/17/2017 SUBJECTIVE: The patient is seen today 09/17/2017. She is not in any cardiopulmonary distress. The patient is in better spirits and she does not have any more crying spells. PHYSICAL EXAMINATION: VITAL SIGNS: Blood pressure 146/72, temperature 97.3, respiratory rate 20, and pulse 78. HEENT: Pupils equal and reactive to light. Normal-appearing mucosa of the conjunctivae, oropharynx, and nasal membrane mucosa. NECK: Supple. No JVD. No carotid bruit. No lymph node. No thyromegaly. CHEST AND LUNGS: Bilaterally symmetrical expansion. Good air exchange. No rales. No rhonchi. CARDIOVASCULAR: PMI not localized. S1 and S2. No additional sounds. ABDOMEN: Normoactive bowel sounds. No tenderness. No organomegaly. No masses. EXTREMITIES: No cyanosis. No clubbing. No edema. CENTRAL NERVOUS SYSTEM: Alert, awake, and oriented x2. There is right-sided hemiparesis. ASSESSMENT: 1. Recurrent cerebrovascular accident. 2. Hypertension. 3. Type 2 diabetes mellitus. 4. Patent foramen ovale. PLAN: Continue current medications and physical therapy and occupational therapy. Fantasma Ivy MD
--- NOTE | 2017-09-18 17:38 | CP.PCM.PN ---
Subjective - Date & Time of Evaluation Date of Evaluation: 09/18/17 Time of Evaluation: 17:37 - Subjective Subjective: Patient seen in the room with daughter present denies sob/cp I was at [facility] today and saw her room where she is to go tomorrow and reassured the daughter that she has a private room and will be treated well patient was appreciative Objective - Vital Signs/Intake and Output Vital Signs (last 24 hours): Temp Pulse Resp BP Pulse Ox 97.9 F 68 20 142/78 99 09/18/17 07:44 09/18/17 09:31 09/18/17 07:44 09/18/17 08:11 09/18/17 09:31 - Medications Medications: Current Medications Amlodipine Besylate (Norvasc) 5 mg PO DAILY [facility] Last Admin: 09/18/17 08:11 Dose: 5 mg Apixaban (Eliquis) 5 mg PO Q12 GUILLERMO PRN Reason: Protocol Last Admin: 09/18/17 08:06 Dose: 5 mg Aspirin (Aspirin Chewable) 81 mg PO DAILY [facility] Last Admin: 09/18/17 08:07 Dose: 81 mg Atorvastatin Calcium (Lipitor) 80 mg PO HS [facility] Last Admin: 09/17/17 21:01 Dose: 80 mg Donepezil HCl (Aricept) 10 mg PO HS [facility] Last Admin: 09/17/17 21:01 Dose: 10 mg Escitalopram Oxalate (Lexapro) 5 mg PO HS [facility] Last Admin: 09/17/17 21:01 Dose: 5 mg Famotidine (Pepcid) 20 mg PO BID [facility] Last Admin: 09/18/17 17:03 Dose: 20 mg Insulin Detemir (Levemir) 10 units SC Q12 GUILLERMO Last Admin: 09/18/17 08:07 Dose: 10 units Insulin Human Lispro (Humalog) 5 units SC AC GUILLERMO Last Admin: 09/18/17 17:03 Dose: 5 units Insulin Human Lispro (Humalog) 0 units SC ACHS GUILLERMO PRN Reason: Protocol Last Admin: 09/18/17 17:03 Dose: Not Given Lidocaine HCl (Lidocaine 2% Viscous) 30 ml PO Q6 PRN PRN Reason: MOUTH PAIN Losartan Potassium (Cozaar) 50 mg PO DAILY [facility] Last Admin: 09/18/17 08:11 Dose: 50 mg Metformin HCl (Glucophage) 500 mg PO BIDWM [facility] Last Admin: 09/18/17 17:03 Dose: 500 mg Nystatin (Nystop Topical Powder) 1 applic TOP 0600,1400,2200 [facility] Last Admin: 09/18/17 13:20 Dose: 1 applic Trazodone HCl (Desyrel) 25 mg PO HS PRN PRN Reason: Insomnia - Labs Labs: 09/05/17 18:30 09/05/17 18:30 PT 11.9 Seconds (9.8-13.1) 08/29/17 05:30 INR 1.1 (0.9-1.2) 08/29/17 05:30
[2017-09-19] MEDS: Insulin Lispro (humaLOG) 100 Units/ml Inj SC SCH ×4 (06:30→11:48)
[2017-09-19 08:12] VITALS: BP 158/74; PULSE 77; RESP 19; TEMP 97.9; O2SAT 97
[2017-09-19] MEDS: Insulin Detemir 100 Units/ml Inj SC SCH (08:29)
--- NOTE | 2017-09-20 01:10 | DS ---
REASON FOR ADMISSION: This is a 72-year-old female with history of multiple medical problems including type 2 diabetes mellitus, CVA, and was admitted for acute rehabilitation after CVA. COURSE OF HOSPITALIZATION: The patient was admitted to acute rehabilitation floor at [facility]. The patient was started on both physical therapy and occupational therapy. Medications were continued and the patient did well and she was discharged to subacute rehabilitation for continuation of the physical therapy and occupational therapy and speech therapy. FINAL DIAGNOSES: Recurrent cerebrovascular accident, patent foramen ovale, hypertension, and type [address] [facility] MD Biju
== END 2017-09-19 16:00 | DRG 57 ==
PROVIDERS: ADMIT Internal Medicine; ATTEND Internal Medicine
PROC: F07Z9FZ Gait Training/Functional Ambulation Treatment using Assistive, Adaptive, Supportive or Protective Equipment (ICD-10-PCS; principal; 2017-08-26)
PROC: F08Z4FZ Home Management Treatment using Assistive, Adaptive, Supportive or Protective Equipment (ICD-10-PCS; 2017-08-26)
PROC: F07M6FZ Therapeutic Exercise Treatment of Musculoskeletal System - Whole Body using Assistive, Adaptive, Supportive or Protective Equipment (ICD-10-PCS; 2017-08-26)
DX: I69.351 Hemiplegia and hemiparesis following cerebral infarction affecting right dominant side (principal); I69.392 Facial weakness following cerebral infarction; Q21.1 Atrial septal defect; I69.312 Visuospatial deficit and spatial neglect following cerebral infarction; I69.398 Other sequelae of cerebral infarction; F06.31 Mood disorder due to known physiological condition with depressive features; E11.65 Type 2 diabetes mellitus with hyperglycemia; I10 Essential (primary) hypertension; I70.0 Atherosclerosis of aorta; E78.5 Hyperlipidemia, unspecified; E78.00 Pure hypercholesterolemia, unspecified; G47.00 Insomnia, unspecified; Z79.4 Long term (current) use of insulin